=== PATIENT | male | born 1945 | race Caucasian/White ===

== ENCOUNTER → 2017-08-13 | Outpatient (CLI) | payer OTHER | LOC: BICULT 13:22 | PROVIDERS: ATTEND Neurological Surgery | DX: N18.9 Chronic kidney disease, unspecified (principal); N28.89 Other specified disorders of kidney and ureter | CPT/HCPCS: 76770 ==

== ENCOUNTER 2018-03-20 20:30 | Observation (INO) | payer MEDICARE ==
[2018-03-20] MEDS ORDERED: Diltiazem HCl 125 MG, Admixture Fee 1 EACH in Sodium Chloride 0.9% 100 ML IVPB SCH (21:30)
--- NOTE | 2018-03-20 21:36 | RAD ---
PORTABLE CHEST X-RAY 03/20/18 HISTORY: Dyspnea. COMPARISON: 02/16/18. FINDINGS: Single lead left subclavian cardiac pacemaking device is noted in place. The cardiac silhouette is ma gnified by projection but stable in size. Surgical clips again overlie the left lower chest/left didier st. The lungs are clear. Vascular calcifications seen in the thoracic aorta. There has been no interv al change from prior exam. IMPRESSION: No acute cardiopulmonary process. POS: HIRAM
[2018-03-20 22:00] LABS: #Basophils 0.1 thou/uL (0.0-0.2); #Eosinphils 0.4 thou/uL (0.0-0.7); #Lymphocytes 2.4 thou/uL (1.20-3.40); #Monocytes 0.6 thou/uL (0.11-0.59); #Neutrophils 4.9 thou/uL (1.40-6.50); %Basophils 0.9 % (0.0-1.0); %Eosinophils 5.3 % (0.0-10.0); %Lymphocytes 28.2 % (21.0-51.0); %Neutrophils 58.6 % (42.0-75.0); Hemoglobin 11.6 g/dL (12.0-16.0); Mean Corpuscular HGB CONC 35.5 g/dL (32.0-36.0); Mean Corpuscular Hemoglobin 35.2 pg (27.0-31.0); Mean Corpuscular Volume 99.2 fL (78.0-98.0); Mean Platelet Volume 7.7 fL (7.4-10.4); Platelet Count 240 thou/uL (130-400); RBC Distribution Width 14.6 % (11.5-14.5); Red Blood Cell (RBC) Count 3.29 mill/uL (4.20-5.40); White Blood Cell (WBC) Count 8.4 thou/uL (4.8-10.8)
[2018-03-20 22:23] LABS: ALT (SGPT) 16 U/L (8-55); AST (SGOT) 16 U/L (5-34); Albumin 3.6 g/dL (3.4-4.8); Alkaline Phosphatase 73 U/L (40-150); Anion Gap 13 mmol/L (10-20); BUN (Urea Nitrogen) 15 mg/dL (9.8-20.1); Bilirubin, Total 0.3 mg/dL (0.2-1.2); CK (CPK) 68 U/L (29-168); Calc. Creatinine Clearance 0 mL/min (70-130); Carbon Dioxide 29 mmol/L (23-31); Chloride 104 mmol/L (98-107); Estimated GFR-MDRD 43; Globulin 3.2 g/dL (2.4-3.5); Glucose 122 mg/dL (83-110); Potassium 4.1 mmol/L (3.5-5.1); Protein, Total 6.8 g/dL (6.0-8.3); Sodium 142 mmol/L (136-145)
[2018-03-20 22:27] LABS: CKMB 1.5 ng/mL (0-6.6); Troponin I Less than 0.010 ng/mL (< 0.028)
--- NOTE | 2018-03-20 23:15 | PDOC.FPRHP ---
- History of Present Illness Chief Complaint: Palpitations History of Present Illness: Ms Schwartz is a 72yo female with pmh of afib w/ RVR s/p pacemaker implantation Feb 2017, DMII, HTN, HLD presenting with palpitations that started Sunday 03/18 during physical therapy. Palpitations have been persistent since. Pt reports having appt scheduled with Cardiology, Dr Henriquez on Sunday 02/18. 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 She denies chest pain, SOB, nausea, vomiting, fevers/chills, lightheadedness or presyncope. ED Course: Diltiazem IV 15mg, diltiazem gtt 5mg/hr, ASA 324mg - Allergies/Adverse Reactions Allergies Allergy/AdvReac Type Severity Reaction Status Date / Time No Known Allergies Allergy Verified 03/21/18 01:37 - Home Medications Medication Instructions Recorded Confirmed Type Albuterol Sulfate [Ventolin Hfa] 1 spray PO DAILY 03/21/18 03/21/18 History Atorvastatin Calcium 20 mg PO DAILY 03/21/18 03/21/18 History Digoxin [Lanoxin] 0.125 mg PO DAILY #30 tab 03/21/18 Rx Diltiazem HCl [Cartia XT] 180 mg PO DAILY 03/21/18 03/21/18 History Escitalopram Oxalate 20 mg PO BID 03/21/18 03/21/18 History Furosemide 40 mg PO BID 03/21/18 03/21/18 History Gabapentin 600 mg PO TID 03/21/18 03/21/18 History Losartan Potassium 25 mg PO DAILY 03/21/18 03/21/18 History Metoprolol Succinate 100 mg PO DAILY 03/21/18 03/21/18 History Potassium Chloride [Klor-Con M20] 20 meq PO BID 03/21/18 03/21/18 History Primidone [Mysoline] 50 mg PO BID 03/21/18 03/21/18 History Rivaroxaban [Xarelto] 15 mg PO DAILY 03/21/18 03/21/18 History metFORMIN [Glucophage] 500 mg PO BID-WM 03/21/18 03/21/18 History - History PMHx: CKD, DMII, peripheral neuropathy, HTN, hx of breast cancer, HLD, depression PSHx: Pacemaker Feb 2017, , mastectomy FHx: Mother- DM, Father- Colon Cancer Social: Denies tobacco, alcohol or drug use - Review of Systems General: denies: fever/chills, weight/appetite/sleep changes Eyes: reports: other (denies blurry vision). denies: vision changes ENT: denies: nasal congestion, rhinorrhea Respiratory: denies: cough, congestion, shortness of breath Cardiovascular: reports: palpitation. denies: chest pain, edema Gastrointestinal: reports: constipation. denies: nausea, vomiting, diarrhea, abdominal pain Genitourinary: reports: other (denies hematuria). denies: dysuria Skin: denies: rashes, lesions Musculoskeletal: denies: pain, swelling Neurological: reports: numbness. denies: weakness - Vital signs BP: 117/78 HR: 118 RR: 18 Tmax: 98.2 Pox: 95% on RA Wt: 108.54 - Physical Exam Constitutional: NAD, awake, alert and oriented, well developed HEENT: normocephalic and atraumatic, TM's clear and intact, normal nasal mucosa , MMM, oropharynx clear, other (poor dentition) Neck: supple, trachea midline, no thyromegaly Heart: pulses present, other (irregular rate, tachycardic) Lungs: CTAB, no respiratory distress Abdomen: soft, non-tender, bowel sounds present Skin: capillary refill <2 seconds Psychiatric: normal mood and affect, good judgment and insight, intact recent and remote memory FMR H&P: Results - Labs Result Diagrams: 03/21/18 04:20 03/21/18 04:20 Lab results: WBC 8.4 thou/uL (4.8-10.8) 03/20/18 21:48 Hgb 11.6 g/dL (12.0-16.0) L 03/20/18 21:48 Hct 32.7 % (36.0-47.0) L 03/20/18 21:48 MCV 99.2 fL (78.0-98.0) H 03/20/18 21:48 Plt Count 240 thou/uL (130-400) 03/20/18 21:48 Neutrophils % 58.6 % (42.0-75.0) 03/20/18 21:48 Sodium 142 mmol/L (136-145) 03/20/18 21:48 Potassium 4.1 mmol/L (3.5-5.1) 03/20/18 21:48 Chloride 104 mmol/L (98-107) 03/20/18 21:48 Carbon Dioxide 29 mmol/L (23-31) 03/20/18 21:48 BUN 15 mg/dL (9.8-20.1) 03/20/18 21:48 Creatinine 1.24 mg/dL (0.6-1.1) H 03/20/18 21:48 Glucose 122 mg/dL (83-110) H 03/20/18 21:48 Calcium 9.0 mg/dL (7.8-10.44) 03/20/18 21:48 Total Bilirubin 0.3 mg/dL (0.2-1.2) 03/20/18 21:48 AST 16 U/L (5-34) 03/20/18 21:48 ALT 16 U/L (8-55) 03/20/18 21:48 Alkaline Phosphatase 73 U/L (40-150) 03/20/18 21:48 Creatine Kinase 68 U/L (29-168) 03/20/18 21:48 CK-MB (CK-2) 1.5 ng/mL (0-6.6) 03/20/18 21:48 B-Natriuretic Peptide 165.9 pg/mL (0-100) H 03/20/18 21:48 Serum Total Protein 6.8 g/dL (6.0-8.3) 03/20/18 21:48 Albumin 3.6 g/dL (3.4-4.8) 03/20/18 21:48 - EKG Interpretation EKG: Afib with narrow complex RVR, QRS 78ms - Radiology Interpretation Chest x-ray Status: image reviewed by me, report reviewed by me Additional comment: CXR normal, single lead left subclavian cardiac pacemaking device FMR H&P: A/P - Problem List (1) Atrial fibrillation with RVR Current Visit: Yes Status: Acute Code(s): I48.91 - UNSPECIFIED ATRIAL FIBRILLATION (2) MDD (major depressive disorder) Current Visit: Yes Status: Chronic Code(s): F32.9 - MAJOR DEPRESSIVE DISORDER, SINGLE EPISODE, UNSPECIFIED (3) Diabetes mellitus, type 2 Current Visit: Yes Status: Chronic Qualifiers: Diabetes mellitus complication status: with kidney complications Chronic kidney disease stage: stage 3 (moderate) (4) Hx of breast cancer Current Visit: Yes Status: Resolved Code(s): Z85.3 - PERSONAL HISTORY OF MALIGNANT NEOPLASM OF BREAST (5) CKD (chronic kidney disease) Current Visit: Yes Status: Chronic Code(s): N18.9 - CHRONIC KIDNEY DISEASE, UNSPECIFIED (6) Benign essential tremor Current Visit: Yes Status: Chronic Code(s): G25.0 - ESSENTIAL TREMOR - Plan Ms Schwartz is a 72yo female with pmh of afib w/ RVR s/p pacemaker implantation Feb 2017, DMII, HTN, HLD presenting with Afib with RVR Symptomatic Afib with RVR - Last admission 02/2018 Cards increased Metoprolol to 100mg BID and changed diltiazem to AM dose - Patient had pacemaker placed in Feb 2017 - Rate 110-130 - Trop neg, Mg, Phos neg - Currently on diltiazem gtt at 5 - Follows with Dr Haq, cardiology - Consult cards - Continue home metoprolol 100mg BID, Xarelto - TSH pending HTN, controlled - Continue home losartan, diltiazem gtt DMII - Continue home metformin - Accuchecks ACHS - mild SSI CKD - Cr 1.24, at baseline - Continue to monitor HLD - Continue home atorvastatin Benign Essential Tremor - Continue home Primidone Code Status: FULL DVT ppx: Xarelto FMR H&P: Upper Level - Pertinent history 72 yo F with known history of a fib s/p pacemaker placement who presents with cc of palpitations since Saturday after finishing PT. She states that she has been very aware of her heart rate the last couple of days. She denies any chest pain, shortness of breath, n/v/diaphoresis. She denies any syncope or presyncope. She was seen in our clinic yesterday and EKG showed a fib per report with rate of 81. She was encouraged to keep diary of pulse and f/u with Dr. Henriquez as scheduled on Saturday. She was reassured but today did not feel comfortable waiting to be re-evaluated and decided to come to ED. - Pertinent findings VS as above. HR 90-110 at time of our exam. BP WNL. Afebrile. RR 16. Gen: awake, alert, oriented HEENT: EOMI, conjunctiva non-injected, no carotid bruits noted CV: RRR, no murmur noted, pacemaker in L chest RESP: CTAB ABD: obese, non-TTP, BS normoactive Ext: pulses 2+ in BL radial and dorsalis pedis, no edema - Plan Date/Time: 03/20/18 2304 72 yo F with known history of a fib with pacemaker in place here with a fib with RVR 1. A fib with RVR: Started on dilt drip in ED. Continue and will titrate PRN to goal pulse < 110. Pacemaker placed 02/2017. Trop neg x2. Will continue to trend, check Mg, Phos, TSH. EKG shows a fib with rate 119. Will consult cardiology in a.m. Home Xarelto. On ASA as well. 2. HTN: Controlled. Continue home losartan. On metoprolol and diltiazem at home as well. On dilt gtt. Holding PO dilt. 3. T2DM: Most recent a1c 6.9 last month. Continue home Metformin. ACHS accuchecks with mild SSI. CC diet. 4. CKD Stage 3: At baseline. Monitor. Renally dose meds 5. HLD: Home atorvastatin. 6. Essential tremor: Home primidone 7. Depression: Home lexapro 8. Peripheral neuropathy: Home gabapentin Code Status: FULL DVT ppx: Xarelto I, Ofelia Helton MD, have evaluated this patient and agree with findings/plan as outlined by email marketing intern resident. Pertinent changes/additions are listed here. Attending Addendum - Attending Addendum Date/Time: 03/21/18 1410 I personally evaluated the patient and discussed the management with Dr. Aldana. I agree with the History, Examination, Assessment and Plan documented above with any addition or exceptions noted below.
[2018-03-21] MEDS ORDERED: Ondansetron ODT 4 MG TAB SL PRN (01:06)
[2018-03-21] MEDS ORDERED: Ondansetron HCl/PF 4 MG/2 ML Vial IVP PRN (01:06)
[2018-03-21 01:08] LABS: Phosphorus 3.9 mg/dL (2.3-4.7)
[2018-03-21 01:14] LABS: Troponin I Less than 0.010 ng/mL (< 0.028)
[2018-03-21 01:28] VITALS: BMI 41.1
[2018-03-21] MEDS ORDERED: HumaLOG 300 UNITS/3 ML VIAL SC PRN (01:48)
[2018-03-21] MEDS ORDERED: Dextrose 50% Abboject 50 ML SYRINGE SLOW IVP PRN (01:48)
[2018-03-21] MEDS ORDERED: Dextrose 5% in Water 1,000 ML IV PRN (01:48)
--- NOTE | 2018-03-21 03:13 | PDOC.EVN ---
Event Note - Event Note Event Note: Date/Time: 03/21/18 0312 I personally evaluated the patient and discussed the management with Dr. Aldana. I agree with the History, Examination, Assessment and Plan as discussed. Written H&P pending.
[2018-03-21 05:03] LABS: #Basophils 0.1 thou/uL (0.0-0.2); #Eosinphils 0.5 thou/uL (0.0-0.7); #Lymphocytes 2.7 thou/uL (1.20-3.40); #Monocytes 0.6 thou/uL (0.11-0.59); #Neutrophils 3.9 thou/uL (1.40-6.50); %Basophils 1.1 % (0.0-1.0); %Eosinophils 6.5 % (0.0-10.0); %Lymphocytes 34.9 % (21.0-51.0); %Monocytes 7.4 % (0.0-10.0); %Neutrophils 50.1 % (42.0-75.0); Hemoglobin 11.1 g/dL (12.0-16.0); Mean Corpuscular HGB CONC 35.2 g/dL (32.0-36.0); Mean Corpuscular Volume 99.5 fL (78.0-98.0); Platelet Count 214 thou/uL (130-400); RBC Distribution Width 14.7 % (11.5-14.5); Red Blood Cell (RBC) Count 3.16 mill/uL (4.20-5.40); White Blood Cell (WBC) Count 7.8 thou/uL (4.8-10.8)
[2018-03-21 05:14] LABS: Anion Gap 9 mmol/L (10-20); BUN (Urea Nitrogen) 14 mg/dL (9.8-20.1); Calc. Creatinine Clearance 79 mL/min (70-130); Calcium 8.6 mg/dL (7.8-10.44); Carbon Dioxide 29 mmol/L (23-31); Chloride 108 mmol/L (98-107); Estimated GFR-MDRD 49; Glucose 101 mg/dL (83-110); Potassium 3.7 mmol/L (3.5-5.1); Sodium 142 mmol/L (136-145)
[2018-03-21 05:18] LABS: Troponin I 0.012 ng/mL (< 0.028)
--- NOTE | 2018-03-21 06:24 | PDOC.FM ---
- Subjective Subjective: Patient doing well this AM. No significant overnight events. Patient states she was having palpitations the last few days. She was supposed to have appt with Dr. Henriquez today, but presented to the hospital last night because the palpitations persisted. She has a known history of A-fib. - Objective MAR Reviewed: Yes Vital Signs & Weight: Vital Signs (12 hours) Temp Pulse Resp BP Pulse Ox 03/21/18 03:47 98.3 F 101 H 18 114/52 L 95 03/21/18 01:05 98.2 F 130 H 18 03/21/18 01:00 98.2 F 130 H 18 121/71 98 Weight Weight 108.545 kg I&O: 03/19/18 03/20/18 03/21/18 06:59 06:59 06:59 Intake Total 140 Balance 140 Result Diagrams: 03/21/18 04:20 03/21/18 04:20 EKG Reviewed by me: Yes Radiology Reviewed by me: Yes <Marquita Huang - Last Filed: 03/21/18 09:36> - Objective Vital Signs & Weight: Vital Signs (12 hours) Temp Pulse Resp BP BP Pulse Ox 03/21/18 11:48 98.2 F 86 16 122/59 L 92 L 03/21/18 11:23 98 F 96 16 121/68 94 L 03/21/18 07:56 90 16 03/21/18 07:47 97.6 F 90 20 03/21/18 07:29 97.6 F 90 20 116/57 L 95 03/21/18 03:47 98.3 F 101 H 18 114/52 L 95 03/21/18 01:05 98.2 F 130 H 18 03/21/18 01:00 98.2 F 130 H 18 121/71 98 Weight Weight 108.545 kg I&O: 03/20/18 03/21/18 03/22/18 06:59 06:59 06:59 Intake Total 140 Balance 140 Result Diagrams: 03/21/18 04:20 03/21/18 04:20 <Terence Flores - Last Filed: 03/21/18 12:57> Phys Exam - Physical Examination Constitutional: NAD HEENT: moist MMs, sclera anicteric Neck: supple Respiratory: no wheezing, clear to auscultation bilateral Cardiovascular: irregular Gastrointestinal: soft, non-tender Musculoskeletal: pulses present Neurological: non-focal Psychiatric: A&O x 3 <Marquita Huang - Last Filed: 03/21/18 09:36> Dx/Plan (1) Atrial fibrillation with RVR Code(s): I48.91 - UNSPECIFIED ATRIAL FIBRILLATION Status: Acute (2) CKD (chronic kidney disease) Code(s): N18.9 - CHRONIC KIDNEY DISEASE, UNSPECIFIED Status: Chronic (3) Diabetes mellitus, type 2 Status: Chronic Qualifiers: Diabetes mellitus complication status: with kidney complications Chronic kidney disease stage: stage 3 (moderate) (4) MDD (major depressive disorder) Code(s): F32.9 - MAJOR DEPRESSIVE DISORDER, SINGLE EPISODE, UNSPECIFIED Status : Chronic (5) Hx of breast cancer Code(s): Z85.3 - PERSONAL HISTORY OF MALIGNANT NEOPLASM OF BREAST Status: Resolved - Plan Plan: Ms Schawrtz is a 72yo female with pmh of afib w/ RVR s/p pacemaker implantation Feb 2017, DMII, HTN, HLD presenting with Afib with RVR Symptomatic Afib with RVR - Last admission 02/2018 Cards increased Metoprolol to 100mg BID and changed diltiazem to AM dose - Patient had pacemaker placed in Feb 2017 - Rate 110-130 on presentation - Trop neg, Mg, Phos neg - Currently on diltiazem gtt at 5; controlling rate adequately - Follows with Dr Haq, cardiology - Cards consulted; appreciate recs - Continue home metoprolol 100mg BID, Xarelto - TSH low at 0.0118; will order free T3 HTN, controlled - Continue home losartan, diltiazem gtt DMII - Continue home metformin - Accuchecks ACHS - mild SSI CKD - Cr 1.24 --> 1.10 - Continue to monitor HLD - Continue home atorvastatin Benign Essential Tremor - Continue home Primidone Code Status: FULL DVT ppx: Xarelto Dispo: Stable. Consult cardiology this AM. Appreciate recs. <Marquita Huang - Last Filed: 03/21/18 09:36> Attending Addendum - Attending Addendum Date/Time: 03/21/18 1257 I personally evaluated the patient and discussed the management with Dr. Huang. I agree with and repeated the History, Examination, Assessment and Plan documented above with any addition or exceptions noted below. Pt now asymptomatic. Hold dilt gtt. Await cards recommendations. Send FT4. <Terence Flores - Last Filed: 03/21/18 12:57>
[2018-03-21] MEDS: metFORMIN 500 MG TAB PO SCH ×2 (06:58→16:14)
[2018-03-21] MEDS: Furosemide 40 MG TAB PO SCH ×2 (08:37→12:57)
[2018-03-21] MEDS ORDERED: Rivaroxaban 15 MG TAB PO SCH (09:00)
[2018-03-21] MEDS ORDERED: Potassium Chloride 20 MEQ TAB PO SCH (09:00)
[2018-03-21] MEDS ORDERED: PROVENTIL INHALER 6.7 G (200 INHALATIONS) INH SCH (09:00)
[2018-03-21] MEDS ORDERED: Gabapentin 300 MG CAP PO SCH (09:00)
[2018-03-21] MEDS ORDERED: Atorvastatin Calcium 20 MG TAB PO SCH (09:00)
[2018-03-21] MEDS ORDERED: Primidone 50 MG TAB PO SCH (09:00)
[2018-03-21] MEDS ORDERED: Losartan 25 MG TAB PO SCH (09:00)
[2018-03-21] MEDS ORDERED: Escitalopram Oxalate 20 mg Tablet PO SCH (09:00)
[2018-03-21] MEDS ORDERED: Digoxin 0.5 MG/2 ML AMP ONE (12:53)
[2018-03-21] MEDS ORDERED: Digoxin 0.5 MG/2 ML AMP SLOW IVP SCH (13:00)
--- NOTE | 2018-03-21 13:19 | CON-2 ---
DATE OF CONSULTATION: 03/21/2018 Héctor Cox MD, dictating for Sveta Ahuja M.D. CHIEF COMPLAINT: Palpitations. HISTORY OF PRESENT ILLNESS: Ms. Schwartz is a 72-year-old female with past medical history of atrial fi brillation with multiple rapid ventricular response, episodes, status post pacemaker implantation on 02/2017, presented because she had some palpitations that started on Saturday. The patient stated belkis t she was not symptomatic; however, the palpitations persisted and at one point, she had measured her heart rate up to 140. She has gotten fearful and thought did not anything bad to happen and so she decided to present to the ER. During these episodes of palpitations, she denied any fainting episode s, any lightheadedness, any falls. She denied any chest pain. She did admit to shortness of breath with exertion. Patient denied any nausea, vomiting, fevers, chills, or any recent illness. In the E R, she was started on a diltiazem drip with a good response of her heart rate. ALLERGIES: No known drug allergies. PAST MEDICAL HISTORY: Chronic kidney disease, diabetes mellitus type 2, peripheral neuropathy, hyper tension, history of breast cancer, hyperlipidemia, depression. PAST SURGICAL HISTORY: She has had a , mastectomy, pacemaker placement in 02/2017. SOCIAL HISTORY: The patient denies any tobacco, alcohol or drug use or history of use. REVIEW OF SYSTEMS: Twelve point of review of systems was otherwise negative unless listed above in H PI. PHYSICAL EXAMINATION: VITAL SIGNS: Blood pressure 122/59, temperature 98.2, pulse 86, respiration rate 16. Oxygen saturat ion was 92% on room air. CONSTITUTIONAL: Elderly female lying in bed, in no acute distress. HEENT: Normocephalic, atraumatic. NECK: Supple, trachea midline. CARDIOVASCULAR: Irregular rhythm, regular rate. No murmurs. LUNGS: Clear to auscultation bilaterally. ABDOMEN: Soft, nontender. Bowel sounds are present. SKIN: No rashes or lesions. EXTREMITIES: No edema. NEUROLOGIC: No focal deficits. GCS is 15. LABORATORY DATA: Sodium 142, potassium 3.7, chloride 108, carbon dioxide 29, creatinine 1.10, glucos e 101. White blood cells 7.8, hemoglobin 11.1, hematocrit 31.4, platelet count 214. RADIOGRAPHIC FINDINGS: The patient had a chest x-ray on 03/20/2018 that showed no acute cardiopulmon camron process. ASSESSMENT AND PLAN: A 72-year-old female with past medical history of atrial fibrillation with rapi d ventricular response episodes. 1. Atrial fibrillation with rapid ventricular response. The patient is status post diltiazem drip w ith a decrease of her rapid ventricular response to a normal rate. The patient will continue her celso e metoprolol as well as her home diltiazem and her home Xarelto. Cardiology team will initiate digox in 0.5 mg IV now, in 68 hours we will do 0.25 mg loading dose and then she should go home on level of 0.125 mg chronically. She will need to have a digoxin level drawn in 1-2 weeks to determine she is at steady state. 2. Chronic kidney disease. She has at baseline for creatinine. 3. Diabetes mellitus type 2. Accu-Cheks have been ordered. She will continue her metformin as pres cribed and follow up as an outpatient for this. 4. Major depressive disorder. She will continue her home escitalopram. She is not currently having any suicidal or homicidal ideation. 5. Benign essential tremor. She will continue her home primidone. From a Cardiology's perspective, we will make that addition to digoxin and have close followup in the Cardiology Clinic. It is unclear to whether the patient had ever been attempted to have cardioversi on to attempt to get her out of atrial fibrillation. However, she has had a past echo and past EKGs that are consistent with longstanding chronic atrial fibrillation. She is to continue on all of her home medicines with the addition of digoxin for close followup as an outpatient. This patient was se en and examined with Dr. Gustavo Ahuja, the Cardiology attending who is in agreement with this plan.
[2018-03-21 16:04] VITALS: BP 130/55; TEMP 98
--- NOTE | 2018-03-21 18:01 | CON ---
DATE OF CONSULTATION: 03/21/2018 INDICATION FOR CONSULTATION: A 72-year-old female with chronic atrial fibrillation who developed a r apid ventricular response with atrial fibrillation. Please refer to the notes already dictated by e family practice resident, Dr. Héctor Cox. We have seen the patient and we have discussed with the patient and I would agree with his assessment and plan. This is a 72-year-old female who has been followed by Dr. Henriquez. She has had chronic atrial fibr illation and managed by beta blockers and calcium blockers, but she still continues to have episodes of tachycardia at times, presented to the emergency room after she had noticed palpitation. She did not have any chest pain or shortness of breath otherwise associated with it, but when she arrived in the emergency room, her heart rate was over 100 beats per minute around the one teens and she was adm itted for further evaluation. She has not had an ablation in the past nor is she on any antiarrhythm ic medications. She was converted from atrial fibrillation to sinus rhythm. She did have an echocar diogram performed which showed that the left atrium was less than 5 cm in diameter in the past, but n o attempt has been made to convert her back to sinus rhythm and the plan was to control the heart rat e and to continue her antiplatelet medications for which she is on oral anticoagulation. At this ti me, the heart rate is somewhat improved, but still somewhat tachycardic at times and we will add digo jessika to her regimen to see if we can slow the heart rate. Otherwise for her past medical history, soc ial history, family history, medications, allergies and review of systems, please refer to the notes already dictated by the family practice resident. PHYSICAL EXAMINATION: GENERAL: Reveals an elderly female who is in no acute distress at this time. She is very pleasant. She is alert and oriented. VITAL SIGNS: Stable. Blood pressure 122/59, heart rates in the 80s, occasionally goes up to 100 christie ts per minute, respiratory rate 16. HEENT: Shows the head to be normocephalic and atraumatic. Carotid pulses are present. I did not he ar any bruits. CHEST: Clear to auscultation without any rales, rhonchi or wheezing. CARDIOVASCULAR: Reveals an irregularly irregular rhythm. ABDOMEN: Shows obesity with positive bowel sounds. EXTREMITIES: Show no clubbing, cyanosis or edema. NEUROLOGIC: She appears to be fully intact. SKIN: Warm and dry. LABORATORY DATA: Shows hemoglobin 11.1. Chemistry: Her blood sugar was slightly elevated at 121, i t had been up to 132, creatinine was 1.1. She has had no history of chronic renal disease in the pas t. IMPRESSION: 1. Chronic atrial fibrillation with episodes of increased ventricular response with atrial fibrillat ion. We will add digoxin to her regimen. We will continue her other medications. She has remained relatively asymptomatic except for the palpitations. I would suggest that she could be discharged ho me today after she has been given some IV digoxin and she can continue to load up to 1 mg of digoxin with the oral medications and then after that proceed with 0.125 mg p.o. daily and follow up with Dr. Henriquez in the next 2-4 weeks in the office. 2. Status post pacemaker insertion. The function of the pacemaker recently was evaluated and was fo und to be absolutely normal. Would continue this. Follow up transtelephonically. 3. History of diabetes. This is will be dealt by the primary care physicians. 4. Chronic kidney disease, but she has remained stable and creatinine is 1.1.
--- NOTE | 2018-03-22 22:25 | EKG ---
Test Reason : PALPITATIONS Blood Pressure : / mmHG Vent. Rate : 119 BPM Atrial Rate : 070 BPM P-R Int : 000 ms QRS Dur : 078 ms QT Int : 328 ms P-R-T Axes : 000 041 037 degrees QTc Int : 461 ms Atrial fibrillation with rapid ventricular response Abnormal ECG Confirmed by CASPER BOWLES DO ([id number]), web editor JAZMIN HOLLIDAY ([id number]) on 03/22/2018 10:25:13 PM Referred By: Confirmed By:CASPER BOWLES DO
== END 2018-03-21 17:34 | disposition home or self-care (01) ==
LOC: ERS 20:30 → 2SW 23:09
PROVIDERS: ADMIT Family Medicine; ATTEND Family Medicine
DX: I48.2 Chronic atrial fibrillation (principal); I12.9 Hypertensive chronic kidney disease with stage 1 through stage 4 chronic kidney disease, or unspecified chronic kidney disease; E11.22 Type 2 diabetes mellitus with diabetic chronic kidney disease; N18.3 Chronic kidney disease, stage 3 (moderate); E11.42 Type 2 diabetes mellitus with diabetic polyneuropathy; E78.5 Hyperlipidemia, unspecified; F32.9 Major depressive disorder, single episode, unspecified; G25.0 Essential tremor; Z79.01 Long term (current) use of anticoagulants; Z79.84 Long term (current) use of oral hypoglycemic drugs; Z79.899 Other long term (current) drug therapy; Z85.3 Personal history of malignant neoplasm of breast; Z95.0 Presence of cardiac pacemaker
CPT/HCPCS: 71045; 80048; 82550; 82553; 82947; 82962; 83735; 83880; 84100; 84439; 84481; 84484 ×3; 85025; 93005; 94640; 94664; 96365; 96366 ×2; 96375; 99285; G0378 ×2; 36415; 36416; 80053; 84443; A4216; J1160; J7050

== ENCOUNTER 2018-04-17 11:54 | Observation (INO) | payer MEDICARE ==
[2018-04-17 13:13] LABS: Troponin I 0.022 ng/mL (< 0.028)
--- NOTE | 2018-04-17 14:30 | PDOC.FPRHP ---
- History of Present Illness Chief Complaint: Abdominal pain, nausea History of Present Illness: This is a 72 yo female with a PMH of CHF, Afib, HTN, DMII, CKD, who presents to the ED from [facility] with a CC of nausea and epigastric pain. Pt. reports that for 1 week she has been feeling poor and has had a decreased appitite. In the last three days she reports nausea, diarrhea, but no vomiting. She also reported night time sweats. Pt. denies sob, CP, or blood in her stool. She does report that she recently put her in a [facility] because she could no longer care for him. She Has been stressing greatly over this and believes that it may be playing a part in her current situation. - Allergies/Adverse Reactions Allergies Allergy/AdvReac Type Severity Reaction Status Date / Time ciprofloxacin [From Cipro] Allergy Verified 04/17/18 16:17 levofloxacin [From Levaquin] Allergy Verified 04/17/18 16:17 levothyroxine Allergy Verified 04/17/18 16:17 - Home Medications Medication Instructions Recorded Confirmed Type Albuterol Sulfate [Ventolin Hfa] 1 spray PO DAILY PRN 03/21/18 04/17/18 History Aspirin [Aspirin Chewable Tablet] 81 mg PO DAILY #30 tab 03/21/18 04/17/18 Rx Atorvastatin Calcium 20 mg PO QPM 03/21/18 04/17/18 History Diltiazem HCl [Cartia XT] 240 mg PO BID 03/21/18 04/17/18 History Escitalopram Oxalate 20 mg PO DAILY 03/21/18 04/17/18 History Furosemide 40 mg PO BID 03/21/18 04/17/18 History Gabapentin 600 mg PO TID 03/21/18 04/17/18 History Losartan Potassium 25 mg PO DAILY 03/21/18 04/17/18 History Metoprolol Succinate 100 mg PO BID 03/21/18 04/17/18 History Potassium Chloride [Klor-Con M20] 20 meq PO BID 03/21/18 04/17/18 History Primidone [Mysoline] 50 mg PO QPM 03/21/18 04/17/18 History Rivaroxaban [Xarelto] 15 mg PO QPM 03/21/18 04/17/18 History metFORMIN [Glucophage] 500 mg PO BID- 03/21/18 04/17/18 History Cholecalciferol (Vitamin D3) 1,000 unit PO DAILY 04/17/18 04/17/18 History [Vitamin D3] Digoxin [Lanoxin] 0.125 mg PO DAILY 04/17/18 04/17/18 History Multivitamin [Daily Multiple 1 each PO DAILY 04/17/18 04/17/18 History Vitamin] - History PMHx: PSHx: FHx: Social: - Review of Systems General: reports: weight/appetite/sleep changes, night sweats. denies: fever/ chills Eyes: denies: eye pain, vision changes ENT: denies: nasal congestion, rhinorrhea Respiratory: reports: exercise intolerance (pt reports she occasionally gets winded when performing daily activities.). denies: cough, congestion, shortness of breath Cardiovascular: denies: chest pain, palpitation, edema Gastrointestinal: reports: nausea, diarrhea, abdominal pain (Epigastric). denies: vomiting, constipation Genitourinary: denies: incontinence, dysuria Skin: denies: rashes, lesions Musculoskeletal: denies: pain, tenderness Neurological: denies: numbness, syncope Psychological: reports: other (Stress from moving to [facility]) - Vital signs BP: 150/74 HR: 99 RR: 20 Tmax: 98.5 Pox: 96% on RA Wt: 104.553 - Physical Exam Constitutional: NAD, awake, alert and oriented HEENT: EOMI, other (dry mucus membranes) Neck: supple, FROM Chest: no-tender to palpation, no lesions Heart: RRR, normal S1/S2, no murmurs/rubs/gallops Lungs: CTAB, no respiratory distress, no wheezing Abdomen: soft, bowel sounds present, no masses/distention -Abdomen: Pain with moderate palpation of epigastric region. Exam blunted by size of pt. Musculoskeletal: ROM grossly normal Neurological: CN II-XII intact Skin: good turgor Heme/Lymphatic: no unusual bruising or bleeding Psychiatric: normal mood and affect, good judgment and insight FMR H&P: Results - Labs Result Diagrams: 04/18/18 04:55 04/18/18 04:55 Lab results: From [facility] Na 144 K4.2 Cl 108 Bicarb 26 BUN 17 Cr 1.22 GFR43 WBC 9.6 Hgb 11.7 Hct 34.4 Plt 201 AST 28 ALT 26 Alk Phos 64 Lipase 62 Bili 0.6 Troponin trend 0.035, 0.022, 0.026 - EKG Interpretation EKG: Tracy 89 afib with mild lateral ST depression Trung [address] and T wave abnormalities FMR H&P: A/P - Problem List (1) Gastroenteritis Current Visit: Yes Status: Acute Code(s): K52.9 - NONINFECTIVE GASTROENTERITIS AND COLITIS, UNSPECIFIED (2) Atrial fibrillation with RVR Current Visit: No Status: Acute Code(s): I48.91 - UNSPECIFIED ATRIAL FIBRILLATION (3) CKD (chronic kidney disease) Current Visit: No Status: Chronic Code(s): N18.9 - CHRONIC KIDNEY DISEASE, UNSPECIFIED (4) Diabetes mellitus, type 2 Current Visit: No Status: Chronic Qualifiers: Diabetes mellitus complication status: with kidney complications Chronic kidney disease stage: stage 3 (moderate) (5) MDD (major depressive disorder) Current Visit: No Status: Chronic Code(s): F32.9 - MAJOR DEPRESSIVE DISORDER , SINGLE EPISODE, UNSPECIFIED - Plan This is a 72 yo female with a PMH of CHF, Afib, HTN, DMII, CKD Gastroenteritis vs. NSTEMI -Admit to tele obs. Initial elevation in troponin is likely due to demand ischemia from dehydration 2/2 anorexia and diarrhea,. Second and third troponin were negative. We are making NPO currently with her medications. She has zofran for nausea. Pt. received 1L of NS after arriving and did not receive them anywhere else. We are not setting maintenance IVFs due to CHF. Due to bump in troponins and st changes seen on EKG in [facility], we will be consulting Dr. Henriquez tomorrow morning for recommendations. Stool studies are pending. CHF -Aware, monitoring fluid status Atrial Fibrillation -Continue home meds, tele obs HTN -Continue home medications CKD -Aware, It appears pt. is around baseline DMII -Continue home medications, ACHS accuchecks, SSI Code: Full Prophylaxis: Pepcid Family: sister and daughter at bedside, plan discussed with them Disposition: Home in 1-2 days FMR H&P: Upper Level - Pertinent history 72 yo F here as a transfer from [facility]. She was initially seen with complaint of 3 days of diarrhea, however due to patient's cardiac hx a trop was checked which was found to be indeterminate at 0.035 so she was sent here for further work up. Repeat trop here was negative of 0.022. Regarding diarrhea, pt states that she has had 3 days of loose stools. She denies associated symptoms such as bloody/black stools, fever, n/v, chills, or abdominal tenderness. She denies recent travel or sick contacts. She also denies chest pain, SOB, heart palpitation. So does admit to night sweats for the past few days. Significant medical history includes: afib, DM2, CKD, dCHF, HLD, HTN Please see campus recruiting internship note for complete HPI, medical history, and ROS - Pertinent findings Vitals BP 150/74 HR 99 Resp 20 O2 Sat 96% on RA Weight 108 kg Labs Trop 0.035, 0.022 Cr 1.22 GFR 43 Hb 11.7 EKG - paced, rate 76, afib with PVCs, no st changes or T wave changes PE General A&O x4 HEENT atraumatic normocephalic CV irregularly irregular, no murmur Chest CTA b/l Abdomen no TTP, BSx4 Extremities no edema, normal sensation Neuro: Normal sensation, no focal deficits, CN II-XII grossly intact - Plan Date/Time: 04/17/18 1430 I, Cam Walls DO, have evaluated this patient and agree with findings/plan as outlined by campus recruiting internship resident. Pertinent changes/additions are listed here. Elevated troponin - One elevated trop, likely demand related due to being slightly volume down secondary to diarrhea. Second trop is negative - Repeat for total of 3, and monitor on tele - It has been 6 mo since her last stress, unclear about when her last echo was. She sees Dr Henriquez in the outpatient setting. Enteritis - Likely viral in nature, rule out other etiologies with O&P, shiga/ campylobacter, crypto - 1L NS, monitor volume status carefully as pt has hx of dCHF CKD3 - Pt appears to be at baseline, monitor BMP Afib - currently rate controlled - continue home xarelto DM2 - continue home meds - ACHS accuchecks - low carb diet Attending Addendum - Attending Addendum Date/Time: 04/18/18 0855. Seen and examined on day of admission. I personally evaluated the patient and discussed the management with Dr. Hebert and Kavita. I agree with and repeated the History, Examination, Assessment and Plan documented above with any addition or exceptions noted below. PMH is as above. PSH includes bilateral carpal tunnel release and a SH includes no tobacco, ethanol, or drug use FH is noncontributory ROS is otherwise negative except as the residents' HPI. Her exam is unremarkable except that she is wearing gloves due to a reported Raynauds phenomenon. In light of her indeterminate troponin and an initial read at outside ED of lateral ST depression, and her recent 6 month negative stress in Dr. Henriquez' s office we will give him a call in the AM instead of repeating one. Workup her enteritis symptoms. Hopeful discharge tomorrow or the next day.
[2018-04-17] MEDS ORDERED: Acetaminophen 325 MG TAB PO PRN (15:16)
[2018-04-17] MEDS ORDERED: Ondansetron HCl/PF 4 MG/2 ML Vial IVP PRN (15:16)
[2018-04-17] MEDS ORDERED: Sodium Chloride 0.9% 1,000 ML IV SCH (15:16)
[2018-04-17 15:26] VITALS: BMI 39.5
[2018-04-17 16:25] LABS: Troponin I 0.026 ng/mL (< 0.028)
[2018-04-17] MEDS ORDERED: PROVENTIL INHALER 6.7 G (200 INHALATIONS) INH PRN (18:28)
[2018-04-17] MEDS ORDERED: Dextrose 5% in Water 1,000 ML IV PRN (19:35)
[2018-04-17] MEDS ORDERED: Dextrose 50% Abboject 50 ML SYRINGE SLOW IVP PRN (19:35)
[2018-04-17] MEDS ORDERED: HumaLOG 300 UNITS/3 ML VIAL SC PRN (19:35)
[2018-04-17] MEDS ORDERED: Atorvastatin Calcium 20 MG TAB PO SCH (21:00)
[2018-04-17] MEDS ORDERED: Primidone 50 MG TAB PO SCH (21:00)
[2018-04-17] MEDS ORDERED: Rivaroxaban 15 MG TAB PO SCH (21:00)
--- NOTE | 2018-04-17 21:14 | RAD ---
CHEST TWO VIEWS: 04/17/18 HISTORY: Chest pain. COMPARISON: 03/20/18. FINDINGS: There is a single lead left sided transvenous pacemaker, with stable lead position. Enlarged cardiac silhouette. The pulmonary vessels are slightly prominent. Patchy interstitial and alveolar opacities . No consolidation or mass. No pneumothorax or osseous abnormalities. IMPRESSION: No acute cardiopulmonary process. POS: [facility]
[2018-04-17] MEDS ORDERED: Mag-Al 1200 mg/1200 mg/30 ML UDCUP PO PRN (21:29)
[2018-04-17] MEDS: Gabapentin 300 MG CAP PO SCH (21:30)
[2018-04-17] MEDS: Potassium Chloride 20 MEQ TAB PO SCH (21:30)
[2018-04-17] MEDS: Famotidine/PF 20 mg/2ml Vial SLOW IVP SCH (21:31)
[2018-04-18] MEDS: Furosemide 40 MG TAB PO SCH ×2 (05:42→14:45)
[2018-04-18 05:43] LABS: #Basophils 0.1 thou/uL (0.0-0.2); #Eosinphils 0.4 thou/uL (0.0-0.7); #Lymphocytes 2.3 thou/uL (1.20-3.40); #Monocytes 0.7 thou/uL (0.11-0.59); #Neutrophils 4.4 thou/uL (1.40-6.50); %Eosinophils 5.2 % (0.0-10.0); %Monocytes 9.1 % (0.0-10.0); %Neutrophils 55.7 % (42.0-75.0); Hemoglobin 11.1 g/dL (12.0-16.0); Mean Corpuscular HGB CONC 34.4 g/dL (32.0-36.0); Mean Corpuscular Hemoglobin 34.7 pg (27.0-31.0); Mean Platelet Volume 7.7 fL (7.4-10.4); Platelet Count 188 thou/uL (130-400); RBC Distribution Width 14.9 % (11.5-14.5); Red Blood Cell (RBC) Count 3.21 mill/uL (4.20-5.40); White Blood Cell (WBC) Count 7.8 thou/uL (4.8-10.8)
--- NOTE | 2018-04-18 05:49 | PDOC.FM ---
- Subjective Subjective: Pt denies nausea or diarrhea this AM. She denies chest pain, sob, or abdominal pain. She does report a headache. - Objective MAR Reviewed: Yes Vital Signs & Weight: Vital Signs (12 hours) Temp Pulse Resp BP BP Pulse Ox 04/18/18 04:11 69 18 145/67 H 94 L 04/17/18 23:04 98.3 F 78 12 171/55 H 94 L 04/17/18 21:28 88 136/64 04/17/18 19:02 97.5 F L 88 18 136/64 94 L Weight Weight 104.553 kg I&O: 04/16/18 04/17/18 04/18/18 06:59 06:59 06:59 Intake Total 1000 Output Total 200 Balance 800 Result Diagrams: 04/18/18 04:55 04/18/18 04:55 Phys Exam - Physical Examination Constitutional: NAD HEENT: moist MMs Neck: no JVD Respiratory: no wheezing, clear to auscultation bilateral Cardiovascular: no significant murmur Irregularly irregular Gastrointestinal: soft, no distention, positive bowel sounds Mild diffuse tenderness Musculoskeletal: pulses present mild edema Neurological: moves all 4 limbs Psychiatric: A&O x 3 Skin: normal turgor Dx/Plan (1) Gastroenteritis Code(s): K52.9 - NONINFECTIVE GASTROENTERITIS AND COLITIS, UNSPECIFIED Status : Acute (2) Atrial fibrillation with RVR Code(s): I48.91 - UNSPECIFIED ATRIAL FIBRILLATION Status: Acute (3) CKD (chronic kidney disease) Code(s): N18.9 - CHRONIC KIDNEY DISEASE, UNSPECIFIED Status: Chronic (4) Diabetes mellitus, type 2 Status: Chronic Qualifiers: Diabetes mellitus complication status: with kidney complications Chronic kidney disease stage: stage 3 (moderate) (5) MDD (major depressive disorder) Code(s): F32.9 - MAJOR DEPRESSIVE DISORDER, SINGLE EPISODE, UNSPECIFIED Status : Chronic - Plan Plan: This is a 72 yo female with a PMH of CHF, Afib, HTN, DMII, CKD Gastroenteritis vs. NSTEMI -Admit to tele obs. Initial elevation in troponin is likely due to demand ischemia from dehydration 2/2 anorexia and diarrhea,. Second and third troponin were negative. We are making NPO currently with her medications. She has zofran for nausea. Pt. received 1L of NS after arriving and did not receive them anywhere else. We are not setting maintenance IVFs due to CHF. Due to bump in troponins and st changes seen on EKG in [facility]. I discussed the case with Dr. Henriquez and he reports this is not cardiac in nature. Stool studies are pending. CHF -Aware, monitoring fluid status Atrial Fibrillation -Continue home meds, tele obs HTN -Continue home medications CKD -Aware, It appears pt. is around baseline DMII -Continue home medications, ACHS accuchecks, SSI Code: Full Prophylaxis: Pepcid Family: None at bedside Disposition: Home today
[2018-04-18 05:53] LABS: ALT (SGPT) 25 U/L (8-55); AST (SGOT) 28 U/L (5-34); Albumin 3.3 g/dL (3.4-4.8); Alkaline Phosphatase 55 U/L (40-150); Anion Gap 11 mmol/L (10-20); BUN (Urea Nitrogen) 14 mg/dL (9.8-20.1); Bilirubin, Total 0.4 mg/dL (0.2-1.2); Calc. Creatinine Clearance 76 mL/min (70-130); Calcium 8.4 mg/dL (7.8-10.44); Carbon Dioxide 25 mmol/L (23-31); Chloride 109 mmol/L (98-107); Estimated GFR-MDRD 49; Globulin 2.8 g/dL (2.4-3.5); Glucose 124 mg/dL (83-110); Potassium 3.7 mmol/L (3.5-5.1); Protein, Total 6.1 g/dL (6.0-8.3); Sodium 141 mmol/L (136-145)
[2018-04-18] MEDS ORDERED: metFORMIN 500 MG TAB PO SCH (08:00)
[2018-04-18] MEDS ORDERED: Digoxin 0.125 MG TAB PO SCH (09:00)
[2018-04-18] MEDS ORDERED: Escitalopram Oxalate 20 mg Tablet PO SCH (09:00)
[2018-04-18] MEDS ORDERED: Multivit, Therapeutic 1 TAB PO SCH (09:00)
[2018-04-18] MEDS ORDERED: Losartan 25 MG TAB PO SCH (09:00)
[2018-04-18] MEDS: Gabapentin 300 MG CAP PO SCH (10:43)
[2018-04-18] MEDS: Potassium Chloride 20 MEQ TAB PO SCH (10:44)
[2018-04-18] MEDS: Famotidine/PF 20 mg/2ml Vial SLOW IVP SCH (10:45)
[2018-04-18 11:52] VITALS: BP 133/63; TEMP 98.3
--- NOTE | 2018-04-18 13:46 | CON ---
DATE OF CONSULTATION: 04/18/2018 REASON FOR CONSULTATION: Elevated troponin. HISTORY OF PRESENT ILLNESS: Ms. Schwartz is a very pleasant 72-year-old woman I have seen and evaluated in the past. She has a history of atrial fibrillation. She is on anticoagulation therapy. She rec ently presented with abdominal discomfort in addition to mild nausea. She had associated diarrhea in addition subjective fevers. A troponin was drawn at an outlying facility and was just above the nor mal range of 0.035. Normal is less than 0.03. EKG was felt to be similar to a previous EKG. No hodan st pain, pressure, shortness of breath associated symptoms. During my current visit her symptoms hav e resolved. She recently underwent a PET study performed in 10/2017 that was normal with a normal LVEF. PAST MEDICAL HISTORY: Hypertension, diabetes mellitus, atrial fibrillation, breast cancer. ALLERGIES: LEVOTHYROXINE, CIPROFLOXACIN. SOCIAL HISTORY: She is currently . She does have children. No tobacco use. HOME MEDICATIONS: Gabapentin, potassium, atorvastatin, CoQ 10, losartan, Xarelto, Primidone, vitamin D3, calcium, digoxin, Lasix, aspirin, metformin, diltiazem, and Toprol. REVIEW OF SYSTEMS: Ten-point review of systems reviewed as above, otherwise negative. PHYSICAL EXAMINATION: VITAL SIGNS: Blood pressure 145/67, pulse 85, temperature afebrile. GENERAL: Patient is a pleasant female who is in no acute distress. The patient appears her stated ag e. NEUROLOGIC: The patient is alert and oriented times 3 with no focal neurologic deficits. HEENT: Sclerae without icterus. Mouth has moist mucous membranes with normal pallor. NECK: No JVD. Carotid upstroke brisk. No bruits bilaterally. LUNGS: Clear to auscultation with unlabored respirations. BACK: No scoliosis or kyphosis. CARDIAC: Irregularly irregular. ABDOMEN: Soft, nontender, nondistended. No peritoneal signs present. No hepatosplenomegaly. No abn ormal striae. EXTREMITIES: 2+ femoral and 2+ dorsalis pedis pulses. No cyanosis, clubbing, or edema. SKIN: No gross abnormalities. PERTINENT LABS: As above. Hemoglobin 11.1, creatinine 1.1. IMPRESSION: 1. Epigastric pain - likely consistent with gastroenteritis. She did have subjective fever in addit ion to diarrhea. 2. Elevated troponin - this is not felt to be suggestive of unstable angina. She has no current sym ptoms of angina and had a recent stress study that was negative for ischemia. 3. Chronic atrial fibrillation - would continue anticoagulation therapy with Xarelto. 4. From my standpoint, she is stable for discharge.
--- NOTE | 2018-04-18 15:14 | ADD-PRG ---
ADDENDUM DATE OF SERVICE: 04/18/2018 Please add this as an addendum to the note of Dr. Thuan Hebert. Ms. Schwartz was admitted with some atypical chest and abdominal pain, which by this morning had complet tania resolved. She has previously seen Dr. Henriquez for her chest pain and he does not believe it is cardiac in nature. It seems to be more of a gastroenteritis. In the event, this morning, she looks and feels much better. CBC: White count was 7800, hemoglobin 11.1, hematocrit 32.3. Her chemistries, sodium 141, potassium 3.7, chloride 109, bicarbonate 25, BUN 14, creatinine 1.1. Glucose is 124. Liver enzymes are normal. Likely discharge later today.
--- NOTE | 2018-04-21 14:52 | DIS-2 ---
DATE OF ADMISSION: 04/17/2018 DATE OF DISCHARGE: 04/18/2018 ADMITTING ATTENDING: Dr. Terence Flores. DISCHARGE ATTENDING: Dr. Madi Dempsey. RESIDENT: Thuan Hebert DO CONSULTATIONS: Dr. Henriquez, Cardiology. PROCEDURES: Two-view chest x-ray showing no acute cardiopulmonary process. PRIMARY DIAGNOSIS: Gastroenteritis. SECONDARY DIAGNOSES: Congestive heart failure, atrial fibrillation, hypertension, chronic kidney dis ease, type 2 diabetes. DISCHARGE MEDICATIONS: 1. Zofran 10 mg p.o. q.6 hours ten tabs. 2. Tylenol 650 p.o. q.4 hours p.r.n. pain. 3. Albuterol inhaler 1 spray daily p.r.n. wheezing. 4. Aspirin 81 mg p.o. daily. 5. Atorvastatin 20 mg p.o. q.p.m. 6. Vitamin D 1000 units p.o. daily. 7. Digoxin 0.125 mg p.o. daily. 8. Diltiazem 240 mg p.o. b.i.d. 9. Escitalopram 20 mg p.o. daily. 10. Furosemide 40 mg p.o. b.i.d. 11. Gabapentin 600 mg p.o. t.i.d. 12. Losartan 25 mg p.o. daily. 13. Metformin 500 mg p.o. b.i.d. 14. Metoprolol 100 mg p.o. b.i.d. 15. Multivitamin p.o. daily. 16. Potassium chloride 20 mEq p.o. b.i.d. 17. Primidone 50 mg p.o. q.p.m. 18. Xarelto 15 mg p.o. q.p.m. DISCONTINUED MEDICATIONS: None. BRIEF HISTORY OF PRESENT ILLNESS AND HOSPITAL COURSE: This is a 72-year-old female with past medical history of CHF, atrial fibrillation, hypertension, type 2 diabetes, CKD, who presented to the ER [facility] with chief complaint of nausea and epigastric pain. There was concern for NSTEMI a [facility] due to diaphoresis and the location of the pain. The patient had an initial indetermi isabel troponin of 0.035 which trended down in our location in [place] to 0.022 and 0.026. Due to the colleen ricketts's past history, Dr. Henriquez, the patient's hospice music therapist was consulted and agreed this is more likely gastrointestinal in nature versus cardiac. Dr. Henriquez signed off. Patient received gentl e IV fluid resuscitation and supportive measures overnight. The following day, the patient felt much improved and then wished to discharge. DISPOSITION: Stable. DISCHARGE INSTRUCTIONS: 1. Location: Home. 2. Diet: Heart healthy, diabetic, carb consistent. 3. Activity: As tolerated. 4. Follow up with primary care physician in 1-2 weeks.
== END 2018-04-18 14:15 | disposition home or self-care (01) ==
LOC: ERS 11:54 → 2SW 13:53
PROVIDERS: ADMIT Family Medicine; ATTEND Family Medicine
DX: K52.9 Noninfective gastroenteritis and colitis, unspecified (principal); I48.2 Chronic atrial fibrillation; I13.0 Hypertensive heart and chronic kidney disease with heart failure and stage 1 through stage 4 chronic kidney disease, or unspecified chronic kidney disease; E11.22 Type 2 diabetes mellitus with diabetic chronic kidney disease; N18.3 Chronic kidney disease, stage 3 (moderate); I50.9 Heart failure, unspecified; F32.9 Major depressive disorder, single episode, unspecified; Z79.01 Long term (current) use of anticoagulants; Z79.4 Long term (current) use of insulin; Z79.82 Long term (current) use of aspirin; Z79.899 Other long term (current) drug therapy; Z88.1 Allergy status to other antibiotic agents; Z88.8 Allergy status to other drugs, medicaments and biological substances
CPT/HCPCS: 71046; 80053; 82962 ×2; 84484; 85025; 93005; 96361; 96374; 96376; 99285; G0378; 36415; 36416; A4216; S0028

== ENCOUNTER 2018-04-22 12:12 | Inpatient (IN) | payer MEDICARE ==
[2018-04-22 13:16] LABS: Bilirubin Negative (Negative); Blood, Urine Negative (Negative); Clarity CLEAR (Clear); Glucose, Urine (Dipstick) Negative (Negative); Leukocyte Negative (Negative); Nitrite Negative (Negative); Protein, Urine (Dipstick) Negative (Neg-Trace); Specific Gravity, Urine 1.007 (1.002-1.036); Urobilinogen 0.2 mg/dL (0.2-1.0); pH, Urine 5.5 (5.0-9.0)
[2018-04-22 13:31] LABS: #Basophils 0.1 thou/uL (0.0-0.2); #Eosinphils 0.4 thou/uL (0.0-0.7); #Lymphocytes 1.9 thou/uL (1.20-3.40); #Monocytes 0.6 thou/uL (0.11-0.59); #Neutrophils 5.4 thou/uL (1.40-6.50); %Basophils 0.6 % (0.0-1.0); %Lymphocytes 22.9 % (21.0-51.0); %Monocytes 6.8 % (0.0-10.0); %Neutrophils 64.6 % (42.0-75.0); Hemoglobin 12.8 g/dL (12.0-16.0); Mean Corpuscular Hemoglobin 34.8 pg (27.0-31.0); Mean Corpuscular Volume 99.6 fL (78.0-98.0); Mean Platelet Volume 7.8 fL (7.4-10.4); Platelet Count 245 thou/uL (130-400); RBC Distribution Width 14.8 % (11.5-14.5); Red Blood Cell (RBC) Count 3.68 mill/uL (4.20-5.40); White Blood Cell (WBC) Count 8.3 thou/uL (4.8-10.8)
[2018-04-22 13:51] LABS: ALT (SGPT) 30 U/L (8-55); AST (SGOT) 22 U/L (5-34); Albumin 3.9 g/dL (3.4-4.8); Alkaline Phosphatase 74 U/L (40-150); Anion Gap 14 mmol/L (10-20); BUN (Urea Nitrogen) 13 mg/dL (9.8-20.1); Bilirubin, Total 0.4 mg/dL (0.2-1.2); Calc. Creatinine Clearance 0 mL/min (70-130); Calcium 9.4 mg/dL (7.8-10.44); Carbon Dioxide 27 mmol/L (23-31); Chloride 107 mmol/L (98-107); Estimated GFR-MDRD 39; Globulin 3.4 g/dL (2.4-3.5); Glucose 167 mg/dL (83-110); Potassium 4.3 mmol/L (3.5-5.1); Protein, Total 7.3 g/dL (6.0-8.3); Sodium 144 mmol/L (136-145)
[2018-04-22] MEDS ORDERED: Pantoprazole 40 MG VIAL ONE (14:53)
--- NOTE | 2018-04-22 16:41 | ULT ---
GALLBLADDER ULTRASOUND: Date: 04/22/18 HISTORY: Abdominal pain, nausea, vomiting, and diarrhea. FINDINGS: Real-time imaging of the right upper quadrant was performed. The gallbladder is distended. It measure s 11.0 cm in length and 5.0 cm in diameter. Technologist reports a negative ultrasound Reyna's sign. No gallstones are identified. Common duct is mildly dilated. It measures in the 9-10 mm range. The liver parenchyma is echogenic and somewhat heterogeneous, but no focal discrete mass. No definiti ve signs that would suggest any intrahepatic ductal dilatation, although is somewhat difficult to ass ess. Pancreas is partially obscured. Right kidney is within normal limits of size and not obstruction . IMPRESSION: 1. Distended gallbladder, without evidence of gallstones. 2. Mild common bile duct dilatation measuring in the 9-10 mm range, of uncertain etiology. I do not see obvious intrahepatic biliary ductal dilatation, but due to bowel gas and body habitus, the liver is difficult to assess. It is also a coarse, somewhat heterogeneous liver, suggesting fatty change. I f patient has elevated bilirubin that would suggest the possibility of biliary obstruction, I would r ecommend CT for further investigation. The common duct dilatation is slightly more worrisome given th e distention of the gallbladder. POS: [facility]
[2018-04-22] MEDS ORDERED: Dextrose 50% Abboject 50 ML SYRINGE SLOW IVP PRN (18:56)
[2018-04-22] MEDS ORDERED: Ondansetron ODT 4 MG TAB PO PRN (18:56)
[2018-04-22] MEDS ORDERED: HumaLOG 300 UNITS/3 ML VIAL SC PRN (18:56)
[2018-04-22] MEDS ORDERED: Dextrose 5% in Water 1,000 ML IV PRN (18:56)
[2018-04-22] MEDS ORDERED: Acetaminophen 325 MG TAB PO PRN (19:03)
[2018-04-22] MEDS ORDERED: Ondansetron HCl/PF 4 MG/2 ML Vial IVP PRN (19:03)
[2018-04-22] MEDS ORDERED: Ondansetron ODT 4 MG TAB SL PRN (19:03)
[2018-04-22] MEDS ORDERED: Morphine 4 MG/ML VIAL SLOW IVP PRN (19:04)
--- NOTE | 2018-04-22 19:05 | PDOC.FPRHP ---
- History of Present Illness Chief Complaint: Abdominal Pain History of Present Illness: Ms Schwartz is a 72yo female with pmh of Afib, DMII and HTN presenting with nausea and diarrhea of 1 week duration. She was recently admitted on 04/17-04/18 with similar symptoms and one elevated troponin that was attributed to demand ischemia from dehydration 2/2 anorexia and diarrhea as subsequent trops were negative. She reports nausea and diarrhea worsened after discharge to where she is no longer to eat anything except some jello, and pudding. Pain is epigastric , burning and worse after food intake. Does not radiate. Reports diarrhea has improved as she has not been eating very much. Denies vomiting, fever, chills. ED Course: Protonix 40mg - Allergies/Adverse Reactions Allergies Allergy/AdvReac Type Severity Reaction Status Date / Time ciprofloxacin [From Cipro] Allergy Verified 04/17/18 16:17 levofloxacin [From Levaquin] Allergy Verified 04/17/18 16:17 levothyroxine Allergy Verified 04/17/18 16:17 - Home Medications Medication Instructions Recorded Confirmed Type Albuterol Sulfate [Ventolin Hfa] 1 spray PO DAILY PRN 03/21/18 04/22/18 History Aspirin [Aspirin Chewable Tablet] 81 mg PO DAILY #30 tab 03/21/18 04/22/18 Rx Atorvastatin Calcium 20 mg PO QPM 03/21/18 04/17/18 History Escitalopram Oxalate 20 mg PO DAILY 03/21/18 04/22/18 History Furosemide 40 mg PO BID 03/21/18 04/22/18 History Gabapentin 600 mg PO TID 03/21/18 04/22/18 History Losartan Potassium 25 mg PO DAILY 03/21/18 04/22/18 History Metoprolol Succinate 100 mg PO BID 03/21/18 04/22/18 History Potassium Chloride [Klor-Con M20] 20 meq PO BID 03/21/18 04/22/18 History Primidone [Mysoline] 50 mg PO QPM 03/21/18 04/22/18 History Rivaroxaban [Xarelto] 15 mg PO QPM 03/21/18 04/22/18 History metFORMIN [Glucophage] 500 mg PO BID-WM 03/21/18 04/22/18 History Cholecalciferol (Vitamin D3) 1,000 unit PO DAILY 04/17/18 04/22/18 History [Vitamin D3] Digoxin [Lanoxin] 0.125 mg PO DAILY 04/17/18 04/22/18 History Multivitamin [Daily Multiple 1 each PO DAILY 04/17/18 04/22/18 History Vitamin] Acetaminophen [Tylenol Regular 650 mg PO Q4H PRN tab 04/18/18 04/22/18 Rx Strength] Ondansetron HCl [Zofran] 4 mg PO Q6HR PRN #10 tab 04/18/18 04/22/18 Rx - History PMHx: CKD, DMII, peripheral neuropathy, HTN, hx of breast cancer, HLD, depression PSHx: Pacemaker Feb 2017, , mastectomy, b/l knee replacement FHx: Mother- DM, Father- Colon Cancer Social: Denies tobacco, alcohol or drug use - Review of Systems General: reports: weight/appetite/sleep changes (wt loss), fatigue. denies: fever/chills, night sweats Eyes: denies: eye pain, vision changes ENT: denies: nasal congestion, rhinorrhea Respiratory: denies: cough, congestion, shortness of breath Cardiovascular: denies: chest pain, edema Gastrointestinal: reports: nausea, diarrhea, abdominal pain. denies: vomiting, constipation, GI bleeding Genitourinary: reports: other (denies hematuria). denies: dysuria Skin: denies: rashes, lesions Musculoskeletal: denies: pain, stiffness Neurological: reports: weakness. denies: numbness - Vital signs BP: 116/65 HR: 76 RR: 18 Tmax: 98.4 Pox: 98% on RA Wt: 104.78kg - Physical Exam Constitutional: NAD, awake, alert and oriented, well developed HEENT: normocephalic and atraumatic, PERRLA, conjunctiva clear, no scleral icterus, normal nasal mucosa, oropharynx clear, other (dry mucous membranes) Neck: supple, trachea midline Heart: pulses present -Heart: irregular rate Lungs: CTAB, no respiratory distress, no wheezing Abdomen: soft, bowel sounds present, other (+ Reyna sign) Musculoskeletal: normal structure, normal tone Neurological: no focal deficit Skin: capillary refill <2 seconds, no jaundice Psychiatric: normal mood and affect, good judgment and insight, intact recent and remote memory FMR H&P: Results - Labs Result Diagrams: 04/22/18 13:21 04/22/18 13:21 Lab results: WBC 8.3 thou/uL (4.8-10.8) 04/22/18 13:21 Hgb 12.8 g/dL (12.0-16.0) 04/22/18 13:21 Hct 36.6 % (36.0-47.0) 04/22/18 13:21 MCV 99.6 fL (78.0-98.0) H 04/22/18 13:21 Plt Count 245 thou/uL (130-400) 04/22/18 13:21 Neutrophils % 64.6 % (42.0-75.0) 04/22/18 13:21 Sodium 144 mmol/L (136-145) 04/22/18 13:21 Potassium 4.3 mmol/L (3.5-5.1) 04/22/18 13:21 Chloride 107 mmol/L (98-107) 04/22/18 13:21 Carbon Dioxide 27 mmol/L (23-31) 04/22/18 13:21 BUN 13 mg/dL (9.8-20.1) 04/22/18 13:21 Creatinine 1.33 mg/dL (0.6-1.1) H 04/22/18 13:21 Glucose 167 mg/dL (83-110) H 04/22/18 13:21 Calcium 9.4 mg/dL (7.8-10.44) 04/22/18 13:21 Total Bilirubin 0.4 mg/dL (0.2-1.2) 04/22/18 13:21 AST 22 U/L (5-34) 04/22/18 13:21 ALT 30 U/L (8-55) 04/22/18 13:21 Alkaline Phosphatase 74 U/L (40-150) 04/22/18 13:21 Serum Total Protein 7.3 g/dL (6.0-8.3) 04/22/18 13:21 Albumin 3.9 g/dL (3.4-4.8) 04/22/18 13:21 Lipase 78 U/L (8-78) 04/22/18 13:14 Urine Ketones Negative mg/dL (Negative) 04/22/18 12:45 Urine Blood Negative (Negative) 04/22/18 12:45 Urine Nitrite Negative (Negative) 04/22/18 12:45 Ur Leukocyte Esterase Negative (Negative) 04/22/18 12:45 - EKG Interpretation EKG: Afib with PVCs & PACs. Paced rhythm 64 - Radiology Interpretation US - abdomen Status: report reviewed by me Additional comment: Distended gallbladder w/o stones. CBD dilation 9-10mm. Fatty liver. Possible biliary obstruction. Limited by loops of bowel gas. CT for further investigation FMR H&P: A/P - Problem List (1) Control of atrial fibrillation with pacemaker Current Visit: No Status: Acute Code(s): I48.91 - UNSPECIFIED ATRIAL FIBRILLATION; Z95.0 - PRESENCE OF CARDIAC PACEMAKER (2) Acalculous cholecystitis Current Visit: No Status: Acute Code(s): K81.9 - CHOLECYSTITIS, UNSPECIFIED (3) Benign essential tremor Current Visit: No Status: Chronic Code(s): G25.0 - ESSENTIAL TREMOR (4) CKD (chronic kidney disease) Current Visit: No Status: Chronic Code(s): N18.9 - CHRONIC KIDNEY DISEASE, UNSPECIFIED (5) Diabetes mellitus, type 2 Current Visit: No Status: Chronic Qualifiers: Diabetes mellitus complication status: with kidney complications Chronic kidney disease stage: stage 3 (moderate) (6) MDD (major depressive disorder) Current Visit: No Status: Chronic Code(s): F32.9 - MAJOR DEPRESSIVE DISORDER , SINGLE EPISODE, UNSPECIFIED - Plan Ms Schwartz is a 72yo female with pmh Afib with pacemaker on AC, DMII, and HTN presenting with abdominal pain found to have CBD dilation 2/2 to acalculous cholecystitis vs Choledocholitiasis vs gallbladder diskinesia or other form of obstruction Gallbladder and CBD dilation - likely 2/2 acalculous cholecystitis vs Choledocholitiasis vs gallbladder diskinesia or other form of obstruction - Other possible causes include sphincter of Oddi obstruction/dysfunction and sclerosis of CBD - RUQ US limited by bowel gas, Distended gallbladder w/o stones. CBD dilation 9- 10mm. Fatty liver. Possible biliary obstruction. Limited by loops of bowel gas. CT for further investigation - Will obtain CT for further evaluation of other etiologies - Gen Surg reportedly consulted for ER, follow up with recommendations in AM but will need to consult GI first to see if CBD dilation warrants MRCP - Clear liquid diet, NPO at midnight - Gentle fluids, LR @ 75ml/hr - Hold Xarelto for possible surgery - No antibiotics as pt afebrile, no leukocytosis, vital stable Diarrhea - Present at last admission 04/17 - No blood in stools - Will obtain stool studies - CT abdomen for further evaluation Chronic Afib - Pt has pacemaker - Holding Xarelto for possible surgery - Continue home Metoprolol, digoxin CKD3 - Stable form prior admissions - CrCl 63.26 - Gentle fluids, LR @ 75ml/hr - Continue to monitor HTN - Continue home meds Benign Essential Tremor - Continue home primidone DMII - Continue home Metformin, gabapentin - Mild SSI - Hypoglycemic protocol - ACHS accuchecks - May have underlying gastroparesis as cause of epigastric pain and nausea - Start Reglan PO Depression - Continue home escitalopram Code Status: FULL DVT ppx: SCDs, holding Xarelto for possible surgery FMR H&P: Upper Level - Pertinent history 72 y/o F w/ PMHx of T2DM, HTN, and A-fib presents to [facility] for evaluation of N/ diarrhea over the last week. Was hospitalized from 04/17 to 04/18 for similar sxs w/ associated epigastric pain and w/ indeterminate troponin which was felt to be secondary to demand ischemia from dehydration. Cardiology, Dr. Henriquez was consulted who did not feel that her sxs were cardiac in nature and cleared her for d/c home. Per his consultation note from 04/18, her sxs had resolved at this time. Pt reports continued epigastric abdominal pain since discharge w/ continued episodes of diarrhea. Reports diarrhea has slowed down w/ decreased PO intake since discharge. Pt only being able to eat tapioca, Jello, and liquids. Sister reports patient has gotten weak because she hasnt been eating. Denies any fever/chills. Reports pain worse w/ eating, concerned she may have an ulcer. Denies any hematochezia/melena. - Pertinent findings Meds: Lipitor 20 mg HS, ASA 81 mg, KCl 20 mEq BID, Gabapentin 600 mg TID, Metformin 500 mg BID, Lasix 40 mg BID, Lexapro 20 mg HS, Xarelto 15 mg HS, Losartan 25 mg, Metoprolol 100 mg BID, Digoxin 0.125 mg PMHx: CKD3, HTN, A-fib, HLD, T2DM, Hx of Breast CA in remission, Benign essential tremor SurgHx: Pacemaker placement 2017, CSX, Lt Breast Surgery FHx: DM, Colon Cancer (Father) BP: 116/65 P: 76 RR: 18 Temp: 98.4 Deg F O2Sat: 98% on RA WBC 8.3 Neut 64.6% neutrophils Hgb 12.8 Hct 36.6 Plt 245 Na 144 K 4.3 Cl 107 CO2 27 BUN 13 Cr 1.33 Gluc 167 T. bili 0.4 AST 22 ALT 30 Alk Phos 74 Lipase 78 EKG A-fib w/ intermittent PVC/PACs rate 64 RUQ U/S dilatation of CBD 9-10 mm and distention of gabllbladder w/o evidence of gallstones - Plan Date/Time: 04/22/181904 Mary Mcgraw. Johnson Zelaya MD, have evaluated this patient and agree with findings/plan as outlined by technology risk intern resident. Pertinent changes/additions are listed here. 75 y/o F w/ : 1) Gallbladder and CBD dilation likely 2/2 Choledocholithiasis vs Gallbladder dyskinesia - Patient w/o signs sxs consistent w/ sepsis at this time, will hold off on initiating abx as there are no indication patient - Poor overall evaluation w/ U/S 2/2 bowel gas, will obtain CT scan for further evaluation for other possible etiologies of CBD distention and Gallbladder distention such as pancreatic head mass - Gen Surg reportedly consulted from ER, but do not see any documentation that they were spoken with. Will call them for further recommendations/eval for cholecystectomy - NPO at midnight in prep for HIDA scan in AM - Hold xarleto for possible surgery in the AM - Other ddx includes sphincter of Oddi obstruction and sclerosis of the CBD - Will consult GI for possible MRCP for eval for obstructing stone 2) Persistent diarrhea likely 2/2 #1 vs underlying colitis - Will obtain Abdominal/pelvis CT w/ IV contrast per #1 for further evaluation - Stool studies ordered during last admission cancelled upon review of chart, will repeat these for possible infectious etiology - Strict I/O's 3) Chronic Atrial fibrillation - Will hold xarleto in setting of likely cholecystectomy in the AM - Cont. to monitor 4) CKD3 - Stable from prior admissions - Cont. to monitor, renally dose meds 5) HTN - Cont. w/ home BP meds 6) Benign Essential Tremor - Cont. w/ primidone 7) T2DM w/ neuropathy - Cont. w/ metformin - Epigastric pain and nausea possibly due to some underlying gastroparesis as well, will start PO reglan. CrCl 63.26 per Crockroft-Gault formula w/ no dosage adjustments needed. Code Status: Full Code IVF: LR @ 75 mL/Hr Diet: CLD ADAT/ NPO @ 0000 Assessment and plan discussed w/ Dr. Seven Tejada who is in agreement Attending Addendum - Attending Addendum Date/Time: 04/22/182219 I personally evaluated the patient and discussed the management with Dr. Aldana /Nathalie. I agree with the History, Examination, Assessment and Plan documented above with any addition or exceptions noted below. Patient here for symptoms of hypovolemia associated with some abdominal pain. She had imaging study performed here that shows dilation of CBD without overt signs of obstruction. Gen Surgery has been consulted but I would expect that for thorough workup of this dilation that GI would need consultation for possible MRCP. No overt signs of ascending infection or serious biliary pathology. FLuid hydrate and further workup per GI and Gen Surgery. Xarelto being held at this time for possible invasive treatment. NPO at midnight.
[2018-04-22] MEDS: Lactated Ringer's 1,000 ML IV SCH (20:15)
[2018-04-22] MEDS ORDERED: PROVENTIL INHALER 6.7 G (200 INHALATIONS) INH PRN (20:40)
[2018-04-22] MEDS ORDERED: Metoclopramide 10 MG/10 ML UDCUP PO SCH (21:00)
--- NOTE | 2018-04-22 21:54 | CT ---
CT ABDOMEN AND PELVIS WITH IV AND ORAL CONTRAST: 04/22/18 HISTORY: Upset stomach, diarrhea, abdominal pain. FINDINGS: The lung bases are clear. There is mild fatty infiltration of the liver. A small cyst is seen in the liver which is stable since 02/07/17. The spleen, pancreas, adrenal glands and right kidney are normal . Cyst in the left kidney is again seen. No calcified gallstones are seen. No free air, free fluid or lymphadenopathy is noted in the abdomen or pelvis. The small bowel loops are not abnormally dilated. There is no evidence of abnormally dilated fluid filled appendix to suggest appendicitis. The uterus is present. There are vascular calcifications without evidence of aneurysmal dilatation of the abdom inal aorta. There are degenerative changes in the spine. There is a fat containing umbilical hernia n oted. IMPRESSION: 1. Fatty liver. 2. Small cysts in the liver and left kidney. 3. Fat containing umbilical hernia. 4. No evidence of acute process. POS: [facility]
[2018-04-22] MEDS: Gabapentin 300 MG CAP PO SCH (21:57)
[2018-04-22] MEDS: Potassium Chloride 20 MEQ TAB PO SCH (21:57)
[2018-04-22] MEDS: Primidone 50 MG TAB PO SCH (21:58)
[2018-04-23 00:08] VITALS: BMI 39.4
[2018-04-23 06:15] LABS: Band 1 % (5-11); Eosinophils 6 % (0-10); Hemoglobin 11.4 g/dL (12.0-16.0); Lymphocytes 36 % (21-51); MDiff Complete? YES; Mean Corpuscular Hemoglobin 33.9 pg (27.0-31.0); Mean Corpuscular Volume 99.6 fL (78.0-98.0); Mean Platelet Volume 7.5 fL (7.4-10.4); Monocytes 9 % (0-10); Neutrophil 48 % (42-75); PLT Morphology Comment Appears Adequate; Platelet Count 202 thou/uL (130-400); RBC Distribution Width 14.9 % (11.5-14.5); Red Blood Cell (RBC) Count 3.37 mill/uL (4.20-5.40); White Blood Cell (WBC) Count 7.8 thou/uL (4.8-10.8)
--- NOTE | 2018-04-23 06:18 | PDOC.FM ---
- Subjective Subjective: Ms. Schwartz is resting comfortably in bed. she denies continued N/V/D, her abdominal pain has resolved. She has no new complaints. - Objective Vital Signs & Weight: Vital Signs (12 hours) Temp Pulse Resp BP Pulse Ox 04/23/18 04:11 98 F 77 18 144/81 H 98 04/23/18 00:05 98.6 F 70 16 129/68 96 04/22/18 20:15 98.2 F 70 18 145/75 H 99 04/22/18 18:40 98.5 F 69 18 146/73 H 96 Weight Weight 104.326 kg Result Diagrams: 04/23/18 05:09 04/23/18 05:09 <Adolfo Fuller - Last Filed: 04/23/18 08:53> - Objective Vital Signs & Weight: Vital Signs (12 hours) Temp Pulse Resp BP Pulse Ox 04/23/18 09:52 78 04/23/18 07:15 97.9 F 78 18 143/80 H 94 L 04/23/18 04:11 98 F 77 18 144/81 H 98 Weight Weight 104.326 kg I&O: 04/22/18 04/23/18 04/24/18 06:59 06:59 06:59 Intake Total 1140 Output Total 600 Balance 540 Result Diagrams: 04/23/18 05:09 04/23/18 05:09 <Krystal Duran - Last Filed: 04/23/18 14:34> Phys Exam - Physical Examination Constitutional: NAD HEENT: moist MMs Neck: no nodes Respiratory: no wheezing, clear to auscultation bilateral Cardiovascular: RRR, no significant murmur Gastrointestinal: soft, non-tender, no distention, positive bowel sounds Musculoskeletal: no edema Neurological: moves all 4 limbs Psychiatric: normal affect Skin: no rash, normal turgor <Adolfo Fuller - Last Filed: 04/23/18 08:53> Dx/Plan (1) Acalculous cholecystitis Code(s): K81.9 - CHOLECYSTITIS, UNSPECIFIED Status: Acute (2) Control of atrial fibrillation with pacemaker Code(s): I48.91 - UNSPECIFIED ATRIAL FIBRILLATION; Z95.0 - PRESENCE OF CARDIAC PACEMAKER Status: Acute (3) CKD (chronic kidney disease) Code(s): N18.9 - CHRONIC KIDNEY DISEASE, UNSPECIFIED Status: Chronic (4) Diabetes mellitus, type 2 Status: Chronic Qualifiers: Diabetes mellitus complication status: with kidney complications Chronic kidney disease stage: stage 3 (moderate) (5) Benign essential tremor Code(s): G25.0 - ESSENTIAL TREMOR Status: Chronic (6) MDD (major depressive disorder) Code(s): F32.9 - MAJOR DEPRESSIVE DISORDER, SINGLE EPISODE, UNSPECIFIED Status : Chronic - Plan Plan: Gallbladder and CBD dilation - likely 2/2 acalculous cholecystitis vs Choledocholitiasis sphincter of Oddi obstruction/dysfunction and sclerosis of CBD - RUQ US limited by bowel gas, Distended gallbladder w/o stones. CBD dilation 9- 10mm. Fatty liver - CT neg for stones or other acute process - Gen Surg consulted from ER - consider GI consult today to see if CBD dilation warrants MRCP - Clear liquid diet, NPO at midnight - Gentle fluids, LR @ 75ml/hr - Hold Xarelto for possible surgery - No antibiotics as pt afebrile, no leukocytosis, vital stable Diarrhea - Present at last admission 04/17 - No blood in stools - stool studies ordered - CT abdomen reveals no acute processes Chronic Afib - Pt has pacemaker - Holding Xarelto for possible surgery - Continue home Metoprolol, digoxin CKD3 - Stable form prior admissions - CrCl 63.26 - Gentle fluids, LR @ 75ml/hr - Continue to monitor HTN - Continue home meds Benign Essential Tremor - Continue home primidone DMII - Continue home Metformin, gabapentin - Mild SSI - Hypoglycemic protocol - ACHS accuchecks - May have underlying gastroparesis as cause of epigastric pain and nausea - consider Reglan PO after negative gall bladder workup Depression - Continue home escitalopram Code Status: FULL DVT ppx: SCDs, holding Xarelto for possible surgery <Adolfo Fuller - Last Filed: 04/23/18 08:53> Attending Addendum - Attending Addendum Date/Time: 04/23/18 1431 I personally evaluated the patient and discussed the management with Dr. Fuller I agree with the History, Examination, Assessment and Plan documented above with any addition or exceptions noted below- Patient without complaints. States that abdominal, N/V have resolved. Afebrile VSS. A/P: 1) Abd pain- possibly secondary to acalculous cholcysitits vs choledocholithiasis- case d/c with surgery last night by ER MD and recommended obtaining a HIDA scan which has been ordered. Continue NPO for now pending study. 2) DM- monitor accuchecks and hold oral DM meds for now. 3) CKD stable <Krystal Duran - Last Filed: 04/23/18 14:34>
[2018-04-23 06:27] LABS: ALT (SGPT) 21 U/L (8-55); AST (SGOT) 19 U/L (5-34); Albumin 3.4 g/dL (3.4-4.8); Alkaline Phosphatase 62 U/L (40-150); Anion Gap 14 mmol/L (10-20); BUN (Urea Nitrogen) 12 mg/dL (9.8-20.1); Bilirubin, Total 0.5 mg/dL (0.2-1.2); Calc. Creatinine Clearance 73 mL/min (70-130); Calcium 8.8 mg/dL (7.8-10.44); Carbon Dioxide 26 mmol/L (23-31); Chloride 104 mmol/L (98-107); Estimated GFR-MDRD 47; Globulin 2.9 g/dL (2.4-3.5); Glucose 114 mg/dL (83-110); Potassium 3.6 mmol/L (3.5-5.1); Protein, Total 6.3 g/dL (6.0-8.3); Sodium 140 mmol/L (136-145)
[2018-04-23] MEDS: Furosemide 40 MG TAB PO SCH ×2 (06:34→15:01)
[2018-04-23] MEDS: Losartan 25 MG TAB PO SCH (09:52)
[2018-04-23] MEDS: Multivit, Therapeutic 1 TAB PO SCH (09:52)
[2018-04-23] MEDS: metFORMIN 500 MG TAB PO SCH ×2 (09:52→17:55)
[2018-04-23] MEDS: Digoxin 0.125 MG TAB PO SCH (09:52)
[2018-04-23] MEDS: Potassium Chloride 20 MEQ TAB PO SCH ×2 (09:53→21:36)
[2018-04-23] MEDS: Gabapentin 300 MG CAP PO SCH ×3 (09:53→21:36)
[2018-04-23] MEDS: Escitalopram Oxalate 20 mg Tablet PO SCH (09:53)
[2018-04-23] MEDS: Lactated Ringer's 1,000 ML IV SCH (09:54)
--- NOTE | 2018-04-23 14:26 | NM ---
NUCLEAR MEDICINE HEPATOBILIARY SCAN: DATE: 04-23-18 HISTORY: 72-year-old female with right upper quadrant abdominal pain. TECHNIQUE: [id number] dose: 5 mCi Ensure (fatty meal) dose: 8 oz. [id number] injected IV. Dynamic anterior scintigraphy of abdomen for 1 hour. fatty meal given. Additional dynamic anterior scintigraphy of abdomen. Counts obtained over gallbladder. Time-activity curve generated. FINDINGS: There is normal uptake and washout of radiopharmaceutical agent from the liver. The gallbladder fill s normally. Bowel activity is visualized at an appropriate time. The gallbladder ejection fraction is normal: 70%. IMPRESSION: Normal. avelnia POS: [facility]
[2018-04-23] MEDS: Primidone 50 MG TAB PO SCH (21:36)
[2018-04-24] MEDS: Lactated Ringer's 1,000 ML IV SCH ×2 (02:39→12:46)
[2018-04-24] MEDS: Furosemide 40 MG TAB PO SCH ×2 (06:07→15:35)
[2018-04-24 06:14] LABS: Band 2 % (5-11); Eosinophils 4 % (0-10); Hemoglobin 11.9 g/dL (12.0-16.0); Lymphocytes 29 % (21-51); MDiff Complete? YES; Mean Corpuscular HGB CONC 33.7 g/dL (32.0-36.0); Mean Corpuscular Hemoglobin 33.8 pg (27.0-31.0); Mean Platelet Volume 7.7 fL (7.4-10.4); Monocytes 11 % (0-10); Neutrophil 50 % (42-75); Platelet Count 207 thou/uL (130-400); RBC Distribution Width 14.7 % (11.5-14.5); Reactive Lymphocytes 4 % (0-10); Red Blood Cell (RBC) Count 3.51 mill/uL (4.20-5.40); White Blood Cell (WBC) Count 7.1 thou/uL (4.8-10.8)
--- NOTE | 2018-04-24 06:15 | PDOC.FM ---
- Subjective Subjective: Ms. Schwartz has no complaints today, She denies abdominal pain, nausea, vomiting, or diarrhea. She is tolerating PO well, feels like going home today. - Objective Vital Signs & Weight: Vital Signs (12 hours) Temp Pulse Resp BP Pulse Ox 04/24/18 03:53 97.7 F 69 18 144/68 H 97 04/23/18 23:52 97.8 F 72 16 125/48 L 96 04/23/18 21:36 94 L 04/23/18 20:17 97.9 F 61 18 141/62 H 94 L Weight Weight 104.326 kg I&O: 04/22/18 04/23/18 04/24/18 06:59 06:59 06:59 Intake Total 1140 Output Total 600 Balance 540 Result Diagrams: 04/24/18 05:19 04/23/18 05:09 <Adolfo Fuller - Last Filed: 04/24/18 08:49> - Objective Vital Signs & Weight: Vital Signs (12 hours) Temp Pulse Resp BP Pulse Ox 04/24/18 09:07 69 04/24/18 07:36 98.1 F 69 18 151/73 H 94 L 04/24/18 03:53 97.7 F 69 18 144/68 H 97 04/23/18 23:52 97.8 F 72 16 125/48 L 96 Weight Weight 104.326 kg I&O: 04/23/18 04/24/18 04/25/18 06:59 06:59 06:59 Intake Total 1140 1350 Output Total 600 1000 Balance 540 350 Result Diagrams: 04/24/18 05:19 04/23/18 05:09 <Krystal Duran - Last Filed: 04/24/18 11:22> Phys Exam - Physical Examination Constitutional: NAD HEENT: moist MMs Respiratory: no wheezing, no rales, no rhonchi, clear to auscultation bilateral Cardiovascular: RRR, no significant murmur, no rub Gastrointestinal: soft, non-tender, no distention, positive bowel sounds Musculoskeletal: no edema Neurological: moves all 4 limbs Psychiatric: normal affect Skin: no rash <Adolfo Fuller - Last Filed: 04/24/18 08:49> Dx/Plan (1) Acalculous cholecystitis Code(s): K81.9 - CHOLECYSTITIS, UNSPECIFIED Status: Acute (2) Control of atrial fibrillation with pacemaker Code(s): I48.91 - UNSPECIFIED ATRIAL FIBRILLATION; Z95.0 - PRESENCE OF CARDIAC PACEMAKER Status: Acute (3) CKD (chronic kidney disease) Code(s): N18.9 - CHRONIC KIDNEY DISEASE, UNSPECIFIED Status: Chronic (4) Diabetes mellitus, type 2 Status: Chronic Qualifiers: Diabetes mellitus complication status: with kidney complications Chronic kidney disease stage: stage 3 (moderate) (5) Benign essential tremor Code(s): G25.0 - ESSENTIAL TREMOR Status: Chronic (6) MDD (major depressive disorder) Code(s): F32.9 - MAJOR DEPRESSIVE DISORDER, SINGLE EPISODE, UNSPECIFIED Status : Chronic - Plan Plan: Gallbladder and CBD dilation - likely sphincter of Oddi spasm or sclerosis of CBD - RUQ US limited by bowel gas, Distended gallbladder w/o stones. CBD dilation 9- 10mm. Fatty liver - CT neg for stones or other acute process - Gen Surg does not rec surgery - HH diet today, lo fat - Gentle fluids, LR @ 75ml/hr - No antibiotics as pt afebrile, no leukocytosis, vital stable Diarrhea, resolved - Present at last admission 04/17 - No blood in stools - stool studies ordered - CT abdomen reveals no acute processes Chronic Afib - Pt has pacemaker - resume xarelto - Continue home Metoprolol, digoxin CKD3 - Stable form prior admissions - CrCl 63.26 - Gentle fluids, LR @ 75ml/hr - Continue to monitor HTN - Continue home meds Benign Essential Tremor - Continue home primidone DMII - Continue home Metformin, gabapentin - Mild SSI - Hypoglycemic protocol - ACHS accuchecks - May have underlying gastroparesis as cause of epigastric pain and nausea - consider Reglan PO after negative gall bladder workup Depression - Continue home escitalopram Code Status: FULL DVT ppx: SCDs, resume xarelto dispo: poss DC today, refer to GI outpatient <Adolfo Fuller - Last Filed: 04/24/18 08:49> Attending Addendum - Attending Addendum Date/Time: 04/24/18 1114 I personally evaluated the patient and discussed the management with Dr. Fuller I agree with the History, Examination, Assessment and Plan documented above with any addition or exceptions noted below- Feeling much better. Tolerating diet. No N/V or abdominal pain. Afebrile VSS. A/P: Abd pain and N/V resolved but 3rd admission recently for simialr symptoms. HIDA scan negative; per surgery no surgical intervention at this time. Will consult GI for further evaluation and recommendations. 2) CARISSA on CKD- improved. 3) DM- stable. <Krystal Duran - Last Filed: 04/24/18 11:22>
[2018-04-24] MEDS: Digoxin 0.125 MG TAB PO SCH (09:07)
[2018-04-24] MEDS: Gabapentin 300 MG CAP PO SCH ×3 (09:08→20:48)
[2018-04-24] MEDS: Multivit, Therapeutic 1 TAB PO SCH (09:08)
[2018-04-24] MEDS: Losartan 25 MG TAB PO SCH (09:08)
[2018-04-24] MEDS: Escitalopram Oxalate 20 mg Tablet PO SCH (09:08)
[2018-04-24] MEDS: metFORMIN 500 MG TAB PO SCH ×2 (09:08→15:36)
[2018-04-24] MEDS: Potassium Chloride 20 MEQ TAB PO SCH ×2 (09:09→20:49)
[2018-04-24] MEDS ORDERED: Rivaroxaban 15 MG TAB PO SCH (21:00)
[2018-04-24] MEDS: Primidone 50 MG TAB PO SCH (22:17)
--- NOTE | 2018-04-24 23:40 | CON ---
DATE OF CONSULTATION: 04/24/2018 REQUESTING PHYSICIAN: Krystal Duran M.D. REASON FOR CONSULTATION: Abnormal gallbladder imaging. HISTORY OF PRESENT ILLNESS: Quyen Schwartz is a 72-year-old woman with a history of diabetes, chroni c kidney disease, pacemaker placement in 2016 and breast cancer status post mastectomy. She has prev iously seen my GI colleague, Dr. Momo Meredith in 01/2011. She was evaluated for abdominal pain . EGD and colonoscopy were both normal at that time with normal duodenal and random colon biopsies. The patient states she has had no chronic gastrointestinal symptoms until about the past 3 weeks. D uring this time, she tells me she has had postprandial epigastric abdominal pain as well as nausea. There has not been any vomiting, but she has had some diarrhea as well. She will have days with up t o 3-4 bowel movements per day, sometimes less, but the stool is usually quite urgent and she has actu ally had several accidents. There is no melena or hematochezia. She has had a couple of hospital pr esentations over the past few weeks with these symptoms. She was admitted 2 days ago and found to be mildly dehydrated. She had an abdominal ultrasound upon admission and this demonstrated a distended gallbladder, as well as common bile duct dilation of 9-10 mm, but no intrahepatic biliary dilation, so she subsequently had a CT of the abdomen and pelvis and there was no mention of biliary dilation o n that scan, just fatty liver and an umbilical hernia, some small cysts in the liver and kidneys then she had a HIDA scan yesterday and this was completely normal. Throughout all of this, her LFTs have been normal and lipase was also normal. In fact now over the past day and a half, her symptoms have essentially resolved. She was able to eat a large meal today with no symptoms whatsoever. REVIEW OF SYSTEMS: Full review of systems including constitutional, head, eyes, ears, nose, throat, GI, , cardiovascular, respiratory, musculoskeletal, and neurologic systems is negative except as no donna in HPI. PAST MEDICAL HISTORY: Atrial fibrillation, diabetes, hypertension, chronic kidney disease, breast ca ncer status post mastectomy, bilateral knee replacement, pacemaker in 2017, EGD and colonoscopy, both normal in 01/2011. SOCIAL HISTORY: No smoking, alcohol, or drug use. FAMILY HISTORY: Her father did have colon cancer. ALLERGIES: CIPROFLOXACIN, LEVOFLOXACIN, LEVOTHYROXINE. OUTPATIENT MEDICATIONS: Albuterol, aspirin 81 mg daily, atorvastatin, escitalopram, furosemide, kevon pentin, losartan, metoprolol, potassium chloride 20 mEq b.i.d., primidone, Xarelto, metformin, vitami n D3, multivitamin, digoxin, acetaminophen p.r.n., Zofran p.r.n. PHYSICAL EXAMINATION: VITAL SIGNS: Temperature 97.9, pulse 76, blood pressure 134/73, 95% oxygen saturation on room air. GENERAL: A 72-year-old woman lying in bed comfortably in no distress. SKIN: No jaundice, no rash visible or palpable. EYES: No scleral icterus. Extraocular movements intact. ENT: Mucous membranes moist, no oral lesions. LYMPH: No submandibular, supraclavicular lymphadenopathy. THYROID: Nontender to palpation. HEART: Regular rate and rhythm. LUNGS: Clear to auscultation bilaterally. ABDOMEN: Nondistended. Bowel sounds present, soft and nontender to palpation throughout. No guardi ng or rebound tenderness. No masses or organomegaly appreciated. EXTREMITIES: No peripheral edema. VESSELS: Radial pulses 2+ bilaterally. NEUROLOGICAL: Cranial nerves II-XII intact bilaterally. No focal deficits. LABORATORY STUDIES: Urinalysis negative. Sodium 140, potassium 3.6, BUN 12, creatinine 1.14, glucos e 83, total bilirubin 0.5, alkaline phosphatase 62, AST 19, ALT 21, albumin 3.4, lipase 78. WBC 7.1, hemoglobin 11.9, platelets 207. IMAGING STUDIES: Abdominal ultrasound showed distended gallbladder, common bile duct dilation of 9-1 0 mm, but no intrahepatic dilation. CT of the abdomen and pelvis showed fatty liver, some small stab le cyst in the liver and kidney and umbilical hernia. HIDA scan was normal. ASSESSMENT AND PLAN: 1. Biliary dilation. This was demonstrated on admission abdominal ultrasound. This is of uncertain significance, particularly in the context of normal LFTs and normal lipase. The CT scan did not dem onstrate any pancreatic pathology or choledocholithiasis, though I would note that CT does not have t he best sensitivity for this. I do think it would be reasonable to go ahead and get an MRCP for bett er evaluation of the bile duct system. I will go ahead and order this. At any rate, it is not at al l clear that this is related to her presenting symptoms. 2. Epigastric pain, improved this admission. 3. Chronic diarrhea over the past 3 weeks. Also improved the past couple of days. Considerations c ould include upper GI mucosal pathology such as gastritis or peptic ulcer disease, also consider diab etic gastroparesis. Stool studies have been unable to be collected because the diarrhea is actually improved, but if diarrhea recurs, I would recommend sending the stool for pathogens. I think that if the MRCP looks okay and she is still feeling well tomorrow, she could be discharged from the [facility] and follow up on an outpatient basis with Dr. Meredith, who has seen her before. Thank you for the consultation. Please call back anytime with questions or concerns.
[2018-04-25] MEDS: Lactated Ringer's 1,000 ML IV SCH ×2 (00:08→13:40)
[2018-04-25] MEDS ORDERED: Furosemide 40 MG TAB ONE (05:19)
[2018-04-25] MEDS: Furosemide 40 MG TAB PO SCH (06:00)
[2018-04-25] MEDS: metFORMIN 500 MG TAB PO SCH (08:00)
[2018-04-25] MEDS ORDERED: metFORMIN 500 MG TAB ONE (08:34)
[2018-04-25] MEDS ORDERED: Losartan 25 MG TAB ONE (08:37)
[2018-04-25] MEDS ORDERED: Potassium Chloride 20 MEQ TAB ONE (08:38)
[2018-04-25] MEDS ORDERED: Digoxin 0.125 MG TAB ONE (08:38)
[2018-04-25] MEDS ORDERED: Gabapentin 300 MG CAP ONE (08:39)
[2018-04-25] MEDS ORDERED: Escitalopram Oxalate 20 mg Tablet ONE (08:39)
[2018-04-25] MEDS ORDERED: Multivit, Therapeutic 1 TAB ONE (08:40)
[2018-04-25] MEDS: Potassium Chloride 20 MEQ TAB PO SCH (09:00)
[2018-04-25] MEDS ORDERED: Acetaminophen 325 MG TAB ONE (09:09)
[2018-04-25] MEDS: Digoxin 0.125 MG TAB PO SCH (09:30)
[2018-04-25] MEDS: Escitalopram Oxalate 20 mg Tablet PO SCH (09:30)
[2018-04-25] MEDS: Gabapentin 300 MG CAP PO SCH (09:30)
[2018-04-25] MEDS: Multivit, Therapeutic 1 TAB PO SCH (09:30)
[2018-04-25] MEDS: Losartan 25 MG TAB PO SCH (15:27)
[2018-04-25 16:01] VITALS: BP 139/76; TEMP 97.6
--- NOTE | 2018-04-26 09:54 | DIS-2 ---
DATE OF ADMISSION: 04/22/2018 DATE OF DISCHARGE: 04/25/2018 RESIDENT: Adolfo Fuller DO. ADMITTING ATTENDING: Dr. Krystal Duran. DISCHARGE ATTENDING: Dr. Krystal Duran. CONSULTATIONS: Gastroenterology. PROCEDURES: 1. Abdominal ultrasound of the gallbladder. Impression: Distended gallbladder without evidence of gallstones. Mild common bile duct dilation measuring in the 9-10 mm range of uncertain etiology. Obvious intrahepatic biliary duct dilation not seen. Bowel gas and body habitus made the liver difficult to assess. The common duct dilation was more worrisome giving the distention of the gallbladder. Recommended CT for further evaluation. 2. CT of the abdomen and pelvis, no evidence of acute processes. 3. HIDA scan. Impression: Normal. PRIMARY DIAGNOSIS: Gallbladder and common bile duct dilation. SECONDARY DIAGNOSES: 1. Diarrhea, resolved. 2. Chronic atrial fibrillation. 3. Chronic kidney disease, stage 3. 4. Hypertension. 5. Benign essential tremor. 6. Diabetes mellitus type 2. 7. Depression. DISCHARGE MEDICATIONS: Escitalopram 20 mg p.o. daily, gabapentin 600 mg p.o. t.i.d., furosemide 40 mg p.o. b.i.d., potassium chloride 20 mEq p.o. b.i.d., metformin 500 mg p.o. b.i.d. with meals, Primidone 50 mg p.o. q.p.m., albuterol sulfate 1 spray p.o. daily p.r.n., Rivaroxaban (Xarelto) 15 mg p.o. q.p.m., losartan potassium 25 mg p.o. daily, metoprolol succinate 100 mg p.o. b.i.d., atorvastatin calcium 20 mg p.o. q.p.m., aspirin 81 mg p.o. daily, multivitamin 1 each p.o. daily, vitamin D3 1000 units p.o. daily, digoxin 0.125 mg p.o. daily, acetaminophen 650 mg p.o. q.4 hours p.r.n., Zofran 4 mg p.o. q.6 hours p.r.n. DISCONTINUED MEDICATIONS: None. HISTORY OF PRESENT ILLNESS AND HOSPITAL COURSE: A 72-year-old female with past medical history of atrial fibrillation, diabetes mellitus type 2, hypertension, nausea, and diarrhea of 1 week duration. She was recently admitted on 2017 to 04/18/2018 with similar symptoms and one elevated troponin that was attributed to demand ischemia from dehydration secondary to anorexia and diarrhea. Subsequent tropes were negative. She reports nausea and diarrhea worsening after discharge, no longer able to eat anything except for jello and pudding. Her pain is epigastric in nature, burning and worse after food intake , does not radiate. Reports diarrhea has improved and she has not been eating very much. Denies vomiting, fever or chills. Her hospital course, she reported no pain, nausea, vomiting, diarrhea during her entire course at the hospital here. No complaints whatsoever. Multiple tests came back negative for significant gallbladder pathology. GI was consulted and recommended outpatient followup including an ERCP. DISPOSITION: Stable. DISCHARGE INSTRUCTIONS: 1. Location: Home. 2. Diet: Low fat. 3. Activity: As tolerated. 4. Follow up with Gastroenterology in 7 days and primary care doctor, Dr. Francesca Cain in 7 days as well. ROXANA
== END 2018-04-25 16:10 | disposition home or self-care (01) | DRG 446 ==
LOC: ERS 12:12 → SJJU 18:55 → OBSVTOIN 18:55
PROVIDERS: ADMIT Family Medicine; ATTEND Family Medicine
DX: K82.9 Disease of gallbladder, unspecified (principal); K83.8 Other specified diseases of biliary tract; I48.2 Chronic atrial fibrillation; I12.9 Hypertensive chronic kidney disease with stage 1 through stage 4 chronic kidney disease, or unspecified chronic kidney disease; E11.22 Type 2 diabetes mellitus with diabetic chronic kidney disease; N18.3 Chronic kidney disease, stage 3 (moderate); F32.9 Major depressive disorder, single episode, unspecified; Z95.0 Presence of cardiac pacemaker; Z85.3 Personal history of malignant neoplasm of breast; E86.0 Dehydration; Z96.653 Presence of artificial knee joint, bilateral; K52.9 Noninfective gastroenteritis and colitis, unspecified
CPT/HCPCS: 36415; 36416; 74177; 76705; 78227; 80053; 81003; 83690; 85007; 85025; 85027; 87045; 87046; 87324; 87328; 87329; 87449; 87899; 93005; 96374; A9500; A9537; C9113

== ENCOUNTER 2018-05-08 13:09 | Outpatient (CLI) | payer MEDICARE | END 2018-05-08 13:10 | disposition home or self-care (01) | LOC: BICMAMMO 13:09 | PROVIDERS: ATTEND Family Medicine | DX: Z12.31 Encounter for screening mammogram for malignant neoplasm of breast (principal); Z85.3 Personal history of malignant neoplasm of breast | CPT/HCPCS: 77063; 77067 ==

== ENCOUNTER 2018-09-18 08:49 | Outpatient (CLI) | payer MEDICARE ==
--- NOTE | 2018-09-18 11:58 | ULT ---
THYROID ULTRASOUND: HISTORY: Hyperthyroidism, Grave's disease. FINDINGS: Real-time imaging of the right and left lobes of the thyroid gland were performed. This shows catrachita us bilateral nodules, several of which have some fairly dense associated calcification. All of these are subcentimeter in size. It is actually somewhat difficult to define all the discrete nodules. T he right lobe measures 1.2 x 1.1 x 4.1 and the left lobe 1.4 x 1.6 x 4.7 cm in size. IMPRESSION: Very heterogeneous multinodular gland. POS: [facility]
== END 2018-09-18 08:50 | disposition home or self-care (01) ==
LOC: BICULT 08:49
PROVIDERS: ATTEND Family Medicine
DX: E05.90 Thyrotoxicosis, unspecified without thyrotoxic crisis or storm (principal); E04.2 Nontoxic multinodular goiter
CPT/HCPCS: 76536

== ENCOUNTER 2018-10-24 15:29 | Emergency (ER) | payer MEDICARE ==
[2018-10-24 16:13] LABS: #Basophils 0.1 thou/uL (0.0-0.2); #Eosinphils 0.3 thou/uL (0.0-0.7); #Lymphocytes 1.7 thou/uL (1.20-3.40); #Monocytes 0.4 thou/uL (0.11-0.59); #Neutrophils 5.1 thou/uL (1.40-6.50); %Basophils 0.8 % (0.0-1.0); %Eosinophils 3.9 % (0.0-10.0); %Lymphocytes 22.8 % (21.0-51.0); %Monocytes 5.3 % (0.0-10.0); %Neutrophils 67.2 % (42.0-75.0); Hemoglobin 11.8 g/dL (12.0-16.0); Mean Corpuscular Hemoglobin 30.3 pg (27.0-31.0); Mean Corpuscular Volume 91.7 fL (78.0-98.0); Mean Platelet Volume 8.5 fL (7.4-10.4); Platelet Count 197 thou/uL (130-400); RBC Distribution Width 15.6 % (11.5-14.5); White Blood Cell (WBC) Count 7.6 thou/uL (4.8-10.8)
[2018-10-24 16:39] LABS: ALT (SGPT) 11 U/L (8-55); AST (SGOT) 12 U/L (5-34); Albumin 3.7 g/dL (3.4-4.8); Alkaline Phosphatase 124 U/L (40-150); Anion Gap 13 mmol/L (10-20); BUN (Urea Nitrogen) 20 mg/dL (9.8-20.1); Bilirubin, Total 0.3 mg/dL (0.2-1.2); Calc. Creatinine Clearance 0 mL/min (70-130); Calcium 8.9 mg/dL (7.8-10.44); Carbon Dioxide 29 mmol/L (23-31); Chloride 97 mmol/L (98-107); Estimated GFR-MDRD 34; Globulin 2.7 g/dL (2.4-3.5); Glucose 497 mg/dL (83-110); Potassium 4.6 mmol/L (3.5-5.1); Protein, Total 6.4 g/dL (6.0-8.3); Sodium 134 mmol/L (136-145)
[2018-10-24 18:12] LABS: Bilirubin Negative (Negative); Blood, Urine Negative (Negative); Clarity CLEAR (Clear); Glucose, Urine (Dipstick) 500 mg/dL (Negative); Leukocyte Trace (Negative); Nitrite Negative (Negative); Protein, Urine (Dipstick) Negative (Neg-Trace); Specific Gravity, Urine 1.007 (1.002-1.036); Urobilinogen 0.2 mg/dL (0.2-1.0); pH, Urine 5.5 (5.0-9.0)
[2018-10-24 18:14] LABS: Bacteria/HPF None Seen HPF (None Seen); Hyaline Casts/LPF 4-6 HYALINE CAST LPF (0-3 Hyaline); RBC/HPF 0-3 HPF (0-3); Squamous Epithelial 0-3 HPF (0-3)
== END 2018-10-24 20:10 | disposition home or self-care (01) ==
LOC: ERS 15:29
DX: E11.65 Type 2 diabetes mellitus with hyperglycemia (principal); N39.0 Urinary tract infection, site not specified; I10 Essential (primary) hypertension; I48.91 Unspecified atrial fibrillation; F32.9 Major depressive disorder, single episode, unspecified; Z79.01 Long term (current) use of anticoagulants; Z79.82 Long term (current) use of aspirin; Z79.899 Other long term (current) drug therapy
CPT/HCPCS: 36415; 36416; 80053; 81003; 81015; 82010; 84484; 85025; 87086; 93005; 96360; 96361

== ENCOUNTER 2018-11-07 08:34 | Outpatient (CLI) | payer MEDICARE ==
--- NOTE | 2018-11-07 18:04 | NM ---
NUCLEAR MEDICINE BRAIN IMAGIN11/07/18 HISTORY: Essential tremor. TECHNIQUE: A DaTscan with axial tomographic images of the brain was obtained three hours following intravenous a dministration of 4.6 millicuries Iodine 123 Ioflupane. The patient was pretreated with 130 mg of pot assium iodide orally one hour prior to the infection. FINDINGS: There is normal symmetric uptake in the striata bilaterally, demonstrating symmetric, crescent shaped focal regions of activity mirrored about the median plane. IMPRESSION: Normal exam. POS: [facility]
== END 2018-11-07 08:35 | disposition home or self-care (01) ==
LOC: NM 08:34
PROVIDERS: ATTEND Nurse Practitioner Acute Care
DX: G25.0 Essential tremor (principal); E05.90 Thyrotoxicosis, unspecified without thyrotoxic crisis or storm
CPT/HCPCS: 78607; A9584

== ENCOUNTER 2018-12-22 08:12 | Outpatient (CLI) | payer MEDICARE ==
--- NOTE | 2018-12-23 09:53 | NM ---
NUCLEAR MEDICINE THYROID SCAN AND UPTAKE: DATE: 12/23/2018. HISTORY: A 72-year-old female with thyrotoxicosis, unspecified without thyrotoxic crisis. Hyperthyroidism. TECHNIQUE: 256 uCi I-123 administered p.o. Six hour and 24-hour radioiodine uptake study performed. Thyroid scintigraphy performed in 3 views. FINDINGS: Thyroid uptake is diffusely homogeneous between the left and right lobes with no obvious hot or cold nodules. Six-hour uptake is 18.5% (normal range is 6-18%). Twenty-four uptake is 44.5% (normal range is 10-30%). IMPRESSION: Evidence for diffuse hyperthyroidism, such as with Graves disease. POS: [facility]
== END 2018-12-22 08:13 | disposition home or self-care (01) ==
LOC: NM 08:12
PROVIDERS: ATTEND Internal Medicine Endocrinology, Diabetes & Metabolism
DX: E05.00 Thyrotoxicosis with diffuse goiter without thyrotoxic crisis or storm (principal)
CPT/HCPCS: 78014; A9516

== ENCOUNTER 2019-05-11 11:18 | Outpatient (CLI) | payer MEDICARE ==
--- NOTE | 2019-05-11 15:05 | MMO ---
Bilateral MAMMO Bilat Screen [facility]. CLINICAL HISTORY: Patient is 73 years old and is seen for screening. The patient has no family history of breast cancer. The patient has a history of left Lumpectomy in May, - malignant. VIEWS: The views performed were: bilateral craniocaudal with tomosynthesis and bilateral mediolateral oblique with tomosynthesis. FILMS COMPARED: The present examination has been compared to prior imaging studies performed at [facility] on 12/10/2006, 12/27/2009, 05/02/2017 and 05/08/2018. This study has been interpreted with the assistance of computer-aided detection. MAMMOGRAM FINDINGS: There are scattered fibroglandular densities. Finding 1: There are stable post operative changes seen in the left breast. Finding 2: There are stable calcifications seen in both breasts. There are no suspicious masses, suspicious calcifications, or new areas of architectural distortion. IMPRESSION: THERE IS NO MAMMOGRAPHIC EVIDENCE OF MALIGNANCY. A ROUTINE FOLLOW-UP MAMMOGRAM IN 1 YEAR IS RECOMMENDED. THE RESULTS OF THIS EXAM WERE SENT TO THE PATIENT. ACR BI-RADS Category 2 - Benign finding MAMMOGRAPHY NOTE: 1. A negative mammogram report should not delay a biopsy if a dominant of clinically suspicious mass is present. 2. Approximately 10% to 15% of breast cancers are not detected by mammography. 3. Adenosis and dense breasts may obscure an underlying neoplasm. Reported by: GERALD CLAROS MD Electonically Signed: [id number]
== END 2019-05-11 11:19 | disposition home or self-care (01) ==
LOC: BICMAMMO 11:18
PROVIDERS: ATTEND Family Medicine
DX: Z12.31 Encounter for screening mammogram for malignant neoplasm of breast (principal); Z98.890 Other specified postprocedural states
CPT/HCPCS: 77063; 77067